=== PATIENT | female | born 1955 | race Caucasian/White ===

== ENCOUNTER → 2017-09-13 13:40 | Outpatient (CLI) | payer BC, SELFPAY ==
--- NOTE | 2017-09-13 13:42 | BI_ITS ---
MAMMOGRAPHY - BILATERAL SCREENING REASON FOR EXAM: Female, 62 years old. Routine annual screening examination. PERTINENT HISTORY: Non-contributory. TECHNIQUE: Digital bilateral breast rupal (3D mammographic acquisition) in the CC and MLO projections. 2-D mediolateral oblique (MLO) and craniocaudad (CC) views of both breasts were obtained. CAD: Full Field Digital Mammography with Computer Added Detection was performed. COMPARISON: Comparison is made with prior study dated August 12, 2016 and August 12, 2015. FINDINGS: Breast Composition: The breasts are heterogeneously dense, which may obscure small masses. There are no dominant masses or suspicious calcifications. Benign appearing bilateral axillary lymph nodes. No other significant abnormalities are identified. There has been no significant change since the prior study. BI/SCREENING MAMM (CAD), BILAT IMPRESSION: Stable bilateral screening mammogram. Yearly follow-up mammogram recommended. (A) ASSESSMENT CATEGORY: BIRADS Category 2: Benign. A letter regarding these results will be sent to the patient by the facility within 30 days. Approximately 10% of breast cancers are not detected by mammography. A normal mammogram should not delay biopsy of a clinically suspicious abnormality. [id number] Electronically Signed: Stewart Estrella MD at 14:51 EDT Tel [phone], Service support ,
== END ==
PROVIDERS: Family Provider Internal Medicine; PCP Internal Medicine; Visit Provider Obstetrics & Gynecology
DX: Z12.31 Encounter for screening mammogram for malignant neoplasm of breast (principal)
CPT/HCPCS: 77063; 77067

== ENCOUNTER → 2017-09-24 09:04 | Outpatient (CLI) | payer BC, SELFPAY ==
--- NOTE | 2017-09-24 09:06 | RAD_ITS ---
STUDY: X-RAY - LEFT HAND REASON FOR EXAM: Female, 62 years old. Fall yesterday. Pain and swelling. TECHNIQUE: 3 view(s) of the hand. COMPARISON: None. FINDINGS: There is transverse fracture lucency involving the base of the fifth metacarpal. There is associated cortical step-off. There is mild associated soft tissue swelling. There is no angulation. RAD/Hand Min 3 Views IMPRESSION: Acute fracture involving the base of the fifth metacarpal. Osseous anatomic alignment. Mild separation of the fracture fragments. Electronically Signed: Ray Sexton MD at 9:36 EDT , Service support ,
== END ==
PROVIDERS: Family Provider Internal Medicine; PCP Internal Medicine; Visit Provider Physician Assistant Surgical
DX: S60.222A Contusion of left hand, initial encounter (principal); X58.XXXA Exposure to other specified factors, initial encounter; Y93.9 Activity, unspecified; Y92.9 Unspecified place or not applicable; Y99.9 Unspecified external cause status
CPT/HCPCS: 73130

== ENCOUNTER → 2017-12-02 09:18 | Outpatient (CLI) | payer BC, SELFPAY ==
[2017-12-02 10:11] LABS: Absolute Lymphocyte Count 1.62 X10^3/ul (0.83-4.51); Absolute Neutrophil Count 1.7 X10^3/uL (2.0-7.7); Basophil# 0.01 X10^3/uL; Basophil% 0.3 % (0-1); Eosinophil# 0.08 X10^3/uL; Eosinophils% 2.1 % (0-5); Hematocrit 38.6 % (37-47); Hemoglobin 12.6 g/dl (12.0-15.0); Lymphocyte # 1.62 X10^3/ul (4.0); Lymphocyte % 42.7 % (19-41); Mean Corp Hgb Conc 32.6 g/gl (32-36); Mean Corpuscular Hgb 29.2 pg (27.0-32.0); Mean Corpuscular Volume 89.6 fL (81-99); Mean Platelet Vol. 9.5 fl (6.2-12.0); Monocyte# 0.38 X10^3/uL; Neutrophil % 44.9 % (47-70); Platelet Count 318 K/mm3 (150-450); Red Blood Count 4.31 M/mm3 (4.2-5.4); White Blood Count 3.8 K/mm3 (4.4-11.0)
[2017-12-02 10:31] LABS: POSITIVE COUNT NO; POSITIVE DIFFERENTIAL NO; POSITIVE MORPHOLOGY NO
[2017-12-02 10:49] LABS: ALB/GLOB Ratio 0.9 RATIO (0.9-2.4); AST(SGOT) 20 U/L (15-37); Alanine Aminotransfer ALT/SGPT 22 U/L (13-56); Albumin, Serum 3.5 g/dL (3.2-5.0); Alkaline Phosphatase 71 U/L (45-117); Anion Gap 3 (5-15); BUN 15 mg/dL (7-18); BUN/Creat Ratio 18.1 RATIO (10-20); Calcium,Total 8.5 mg/dL (8.5-10.1); Chloride 107 mmol/L (98-107); Cholesterol 198 mg/dL (200); Creatinine, Serum 0.83 mg/dL (0.55-1.02); EST Glomerular Filtration Rate 75 mL/min (>60); Est Glom Filt Rate - Afr Amer 90 mL/min (>60); Globulin 3.8 g/dL (2.2-4.2); Glucose 81 mg/dL (74-106); High Density Lipoprotein 70 mg/dL; Magnesium 2.1 mg/dL (1.6-2.6); Potassium 3.8 mmol/L (3.5-5.1); Protein, Total 7.3 g/dL (6.4-8.2); Sodium Level 140 mmol/L (136-145); T4 Free Direct 1.31 ng/dL (0.76-1.46); Thyroid Stim Hormone (TSH) 1.61 uIU/mL (0.358-3.74); Triglycerides 35 mg/dL; Very Low Density Lipoprotein 7 mg/dL (5-40)
[2017-12-02 13:19] LABS: Vitamin D,25 Hydroxy 64.4 ng/mL (29.95-100.01)
== END ==
PROVIDERS: Family Provider Internal Medicine; PCP Internal Medicine; Visit Provider Internal Medicine
DX: Z00.00 Encounter for general adult medical examination without abnormal findings (principal); E03.9 Hypothyroidism, unspecified; E55.9 Vitamin D deficiency, unspecified; Z13.220 Encounter for screening for lipoid disorders; Z85.79 Personal history of other malignant neoplasms of lymphoid, hematopoietic and related tissues; Z79.899 Other long term (current) drug therapy
CPT/HCPCS: 36415; 80053; 80061; 82306; 83735; 84439; 84443; 85025

== ENCOUNTER → 2018-09-13 12:28 | Outpatient (CLI) | payer BC, SELFPAY ==
--- NOTE | 2018-09-13 12:30 | BI_ITS ---
MAMMOGRAPHY - BILATERAL SCREENING REASON FOR EXAM: Female, 63 years old. Routine annual screening examination. PERTINENT HISTORY: Non-contributory. TECHNIQUE: Digital bilateral breast rupal (3D mammographic acquisition) in the CC and MLO projections. 2-D mediolateral oblique (MLO) and craniocaudad (CC) views of both breasts were obtained. CAD: Full Field Digital Mammography with Computer Added Detection was performed. COMPARISON: Comparison is made with prior study dated August 12, 2016 and September 13, 2017. FINDINGS: Breast Composition: The breasts are heterogeneously dense, which may obscure small masses. There are no dominant masses or suspicious calcifications. No other significant abnormalities are identified. There has been no significant change since the prior study. BI/SCREENING MAMM (CAD), BILAT IMPRESSION: Stable bilateral screening mammogram. Yearly follow-up mammogram recommended. (A) ASSESSMENT CATEGORY: BIRADS Category 1: Negative. A letter regarding these results will be sent to the patient by the facility within 30 days. Approximately 10% of breast cancers are not detected by mammography. A normal mammogram should not delay biopsy of a clinically suspicious abnormality. [id number] Electronically Signed: Stewart Estrella, at 13:30 EDT , Service support ,
== END ==
PROVIDERS: Family Provider Internal Medicine; PCP Internal Medicine; Referring Provider Obstetrics & Gynecology; Visit Provider Obstetrics & Gynecology
DX: Z12.31 Encounter for screening mammogram for malignant neoplasm of breast (principal)
CPT/HCPCS: 77063; 77067

== ENCOUNTER → 2019-08-04 08:24 | Outpatient (CLI) | payer BC, SELFPAY ==
--- NOTE | 2019-08-04 08:30 | BI_ITS ---
MAMMOGRAPHY - BILATERAL SCREENING REASON FOR EXAM: Female, 64 years old. Routine annual screening examination. PERTINENT HISTORY: Non-contributory. TECHNIQUE: Digital bilateral breast ezequiel (3D mammographic acquisition) in the CC and MLO projections. 2-D mediolateral oblique (MLO) and craniocaudad (CC) views of both breasts were obtained. CAD: Full Field Digital Mammography with Computer Added Detection was performed. COMPARISON: Comparison is made with prior study dated September 13, 2018 and September 13, 2017. FINDINGS: Breast Composition: The breasts are heterogeneously dense, which may obscure small masses. There are no dominant masses or suspicious calcifications. Stable benign-appearing bilateral axillary lymph nodes. No other significant abnormalities are identified. There has been no significant change since the prior study. BI/SCREEN MAMM (CAD) W/EZEQUIEL BILAT IMPRESSION: Stable bilateral screening mammogram. Yearly follow-up mammogram recommended. (A) ASSESSMENT CATEGORY: BIRADS Category 1: Negative. A letter regarding these results will be sent to the patient by the facility within 30 days. Approximately 10% of breast cancers are not detected by mammography. A normal mammogram should not delay biopsy of a clinically suspicious abnormality. [id number] Electronically Signed: Stewart Estrella, at 10:34 EST , Service support ,
== END ==
PROVIDERS: PCP Internal Medicine; Referring Provider Obstetrics & Gynecology; Visit Provider Obstetrics & Gynecology
DX: Z12.31 Encounter for screening mammogram for malignant neoplasm of breast (principal)
CPT/HCPCS: 77063; 77067

== ENCOUNTER 2020-03-15 06:37 | Day surgery (SDC) | payer BC, SELFPAY ==
[2020-03-15] VITALS (11 sets, daily range): BP systolic 98–132; BP diastolic 54–98; PULSE 62–75; RESP 14–16; TEMP 36–36.4; O2SAT 97–100; BMI 22.5
--- NOTE | 2020-03-15 06:56 | PCM.HP.STD ---
Problem List (1) Personal history of colonic polyps Status: Acute History of Present Illness Date of Admission: 03/15/20 The patient is a 65 year old F whose last colonoscopy was 5 years ago. She did have a polyp at that time. No personal or family history of colon cancer. She otherwise is enjoying good health. No cough shortness of breath or fever. No abdominal pain. No bright red blood per rectum or melena. No weight loss. No history of DVT. Past Medical History Past Medical History (Chronic Problems): Chronic Problems (Last Updated 09/24/17 @ 09:06 by Jazmin Cunningham) Hypothyroidism (Chronic) Medical History: Medical History (Last Updated 09/24/17 @ 09:06 by Jazmin Cunningham) Cancer C80.1 Thyroid disease E07.9 Allergies No Known Allergies Allergy (Verified 03/15/20 06:46) Home Medications: Ambulatory Orders Medication Instructions Recorded Cholecalciferol (VIT D3) [Vitamin 2,000 unit PO DAILY 10/06/15 D3] Levothyroxine [Synthroid] 75 mcg PO DAILY 10/06/15 Multivitamins,Therapeutic 1 tab PO DAILY 10/06/15 [Multivitamin] Docosahexanoic Acid [Dha Algal-900] 300 mg PO DAILY 03/05/20 Esomeprazole Mag Trihydrate 40 mg PO DAILY 03/05/20 [Nexium] Glucosamine/D3/Boswellia Isis 1 ea PO DAILY 03/05/20 [Osteo Bi-Flex Tablet] Senna [Senokot] 2 tab PO DAILY 03/05/20 Smoking Status: Never smoker Tobacco Use: Non-smoker Review of Systems Constitutional: Denies: Fever Cardiovascular: Denies: Chest Pain Respiratory: Denies: Cough Gastrointestinal: Denies: Abdominal Pain, Melena Endocrine: Denies: Change in Body Habitus VTE Information - Inpt Only VTE Present on Admission: No - Physical Exam Vitals/I&O's: Vital Signs Temp Pulse Resp BP Pulse Ox 97.5 F L 65 16 131/62 H 100 03/15/20 06:48 03/15/20 06:48 03/15/20 06:48 03/15/20 06:48 03/15/20 06:48 Oxygen Delivery Method Room Air Weight: 119 lb 4.321 oz Body Mass Index (BMI) 22.5 General: Alert, Oriented x3, Cooperative, No apparent distress HEENT: Atraumatic Oral: Moist Mucosa Lungs: Clear to auscultation, Normal air movement Cardiovascular: Regular rate, Regular Rhythm Abdomen: Bowel Sounds Present, Non Tender Extremities: No Calf Tenderness Psych/Mental Status: Normal Affect Assessment/Plan All Active Problems (Last Updated 09/24/17 @ 09:06 by Jazmin Cunningham) Personal history of colonic polyps (Acute) Sinusitis, acute (Acute) Closed fracture of fifth metacarpal bone of left hand (Acute) Contusion of left hand, initial encounter (Acute) Ectopic atrial rhythm (Acute) Screening for intestinal cancer. Past history of colon polyp. I recommended the patient a colonoscopy with possible biopsy or polypectomy is indicated. She is aware of the technique, benefit, risk, alternatives. She presents via open access today. We will proceed as noted. Eber Spain M.D., F.A.C.S. Procedure Criteria Procedure Type: Elective COVID Risk Discussion: The surgeon/proceduralist and patient have discussed in detail the risk of exposure to and/or potential harm posed by the COVID-19 virus with having a surgery/procedure at this time versus the risk of delaying the surgery/procedure. It is not possible to know either the risk of delaying the surgery or procedure or chance of getting an infection with perfect accuracy, but a joint decision was made between the patient and the surgeon/proceduralist to proceed at this time with the scheduled surgery/procedure as indicated on the consent form.
[2020-03-15] MEDS: Lactated Ringers 1,000 ML 100 ML IV (06:58)
--- NOTE | 2020-03-15 07:26 | OP.COLON_ITS ---
Patient Name: Мария Helton Procedure Date: 03/15/2020 6:49 AM Date of : 1955 Age: 65 Procedure: Colonoscopy Indications: High risk colon cancer surveillance: Personal history of colonic polyps Providers: Eber Spain MD Referring MD: Josefa Martinez Medicines: Midazolam 4.5 mg IV, Meperidine 100 mg IV Patient Profile: Last Colonoscopy: 5 years ago. Complications: No immediate complications. Procedure: Pre-Anesthesia Assessment: - Prior to the procedure, a History and Physical was performed, and patient medications and allergies were reviewed. The patient's tolerance of previous anesthesia was also reviewed. The risks and benefits of the procedure and the sedation options and risks were discussed with the patient. All questions were answered, and informed consent was obtained. Prior Anticoagulants: The patient has taken no previous anticoagulant or antiplatelet agents. ASA Grade Assessment: II - A patient with mild systemic disease. After reviewing the risks and benefits, the patient was deemed in satisfactory condition to undergo the procedure. After I obtained informed consent, the scope was passed under direct vision. Throughout the procedure, the patient's blood pressure, pulse, and oxygen saturations were monitored continuously. The Colonoscope was introduced through the anus and advanced to the cecum, identified by appendiceal orifice and ileocecal valve. The colonoscopy was performed without difficulty. The patient tolerated the procedure well. The quality of the bowel preparation was good. The ileocecal valve and the appendiceal orifice were photographed. Moderate Sedation: Moderate (conscious) sedation was personally administered by the endoscopist. The following parameters were monitored: oxygen saturation, heart rate, blood pressure, and response to care. Total physician intraservice time was 15 minutes. Scope In: 7:08:05 AM Scope Withdrawal Time 0 hours 6 minutes 55 seconds Scope Out: 7:20:52 AM Total Procedure Duration Time 0 hours 12 minutes 47 seconds Findings: The perianal and digital rectal examinations were normal. The colon (entire examined portion) appeared normal. Minimal hemorrhoids Impression: - The entire examined colon is normal. - No specimens collected. Recommendation: - Discharge patient to home. - Resume previous diet. - Continue present medications. - Repeat colonoscopy in 10 years for screening purposes. Procedure Code(s): --- Professional --- 49032, Colonoscopy, flexible; diagnostic, including collection of specimen(s) by brushing or washing, when performed (separate procedure) 61443, 59, Moderate sedation services provided by the same physician or other qualified health summer child caregiver performing the diagnostic or therapeutic service that the sedation supports, requiring the presence of an independent trained observer to assist in the monitoring of the patient's level of consciousness and physiological status; initial 15 minutes of intraservice time, patient age 5 years or older Diagnosis Code(s): --- Professional --- Z86.010, Personal history of colonic polyps CPT copyright 2017 [employer]. All rights reserved. The codes documented in this report are preliminary and upon geophysicist review may be revised to meet current compliance requirements. Eber Spain MD 03/15/2020 7:25:46 AM This report has been signed electronically. Number of Addenda: 0 Note Initiated On: 03/15/2020 6:49 AM
--- NOTE | 2020-03-15 07:26 | OP.CCLET_ITS ---
03/15/2020 Josefa Martinez [address] [place] [address] Re : Colonoscopy procedure for Мария Helton Dear Dr. Martinez This procedure was performed on Sunday, March 15, 2020. My impressions and recommendations are as follows: Impressions : - The entire examined colon is normal. - No specimens collected. Recommendations : - Discharge patient to home. - Resume previous diet. - Continue present medications. - Repeat colonoscopy in 10 years for screening purposes. My findings are described in the full procedure note, which is enclosed. If I can be of further assistance, please feel free to contact me at Doctor phone number(s): Work: . Sincerely, Eber Spain MD 03/15/2020 7:25:46 AM This report has been signed electronically.
== END 2020-03-15 08:47 | disposition home or self-care (01) ==
LOC: EN 06:37 → AC 06:37
PROVIDERS: PCP Internal Medicine; Referring Provider Internal Medicine; Visit Provider Surgery
PROC: 0DJD8ZZ Inspection of Lower Intestinal Tract, Via Natural or Artificial Opening Endoscopic (ICD-10-PCS; CPT 45378; principal; 2020-03-15 07:25)
DX: Z12.11 Encounter for screening for malignant neoplasm of colon (principal); Z11.59 Encounter for screening for other viral diseases; K64.9 Unspecified hemorrhoids; E03.9 Hypothyroidism, unspecified; Z86.010 Personal history of colon polyps; Z79.899 Other long term (current) drug therapy
CPT/HCPCS: 45378; 87635; 99152; 99153; C9803; J7120; U0003

== ENCOUNTER → 2020-08-06 15:04 | Outpatient (CLI) | payer BC, SELFPAY ==
[2020-03-15 06:48] VITALS: BMI 22.5
--- NOTE | 2020-08-06 15:05 | BI_ITS ---
MAMMOGRAPHY - BILATERAL SCREENING REASON FOR EXAM: Female, 65 years old. Routine annual screening examination. PERTINENT HISTORY: Non-contributory. TECHNIQUE: Digital bilateral breast ezequiel (3D mammographic acquisition) in the CC and MLO projections. 2-D mediolateral oblique (MLO) and craniocaudad (CC) views of both breasts were obtained. CAD: Full Field Digital Mammography with Computer Added Detection was performed. COMPARISON: Comparison is made with prior study dated 08/04/2019 and 09/13/2018. FINDINGS: Breast Composition: The breasts are heterogeneously dense, which may obscure small masses. There is a 1.2 cm x 1 cm well-defined nodule in the upper deep central portion of the right breast. Correlation with ultrasound is recommended. Stable benign-appearing left axillary lymph nodes. No other significant abnormalities are identified. BI/SCRN MAMM (CAD)W/EZEQUIEL BILAT IMPRESSION: 1.2 cm x 1 cm well-defined nodule in the upper deep central portion of the right breast. Correlation with ultrasound is recommended. ASSESSMENT CATEGORY: BIRADS Category 0: Incomplete. Need additional imaging evaluation. A letter regarding these results will be sent to the patient by the facility within 30 days. Approximately 10% of breast cancers are not detected by mammography. A normal mammogram should not delay biopsy of a clinically suspicious abnormality. [id number] Electronically Signed: Stewart Estrella MD at 10:55 EDT , Service support ,
== END ==
PROVIDERS: PCP Internal Medicine; Referring Provider Obstetrics & Gynecology; Visit Provider Obstetrics & Gynecology
DX: Z12.31 Encounter for screening mammogram for malignant neoplasm of breast (principal)
CPT/HCPCS: 77063; 77067

== ENCOUNTER → 2020-08-13 15:02 | Outpatient (CLI) | payer BC, SELFPAY ==
[2020-03-15 06:48] VITALS: BMI 22.5
--- NOTE | 2020-08-13 15:07 | US_ITS ---
STUDY: ULTRASOUND BREAST - RIGHT REASON FOR EXAM: Female, 65 years old. Abnormal screening mammogram. TECHNIQUE: Axial and longitudinal images of the RIGHT breast were performed with a high resolution ultrasound transducer. # OF IMAGES: 13 COMPARISON: Comparison is made with prior mammogram dated 08/06/2020. FINDINGS: RIGHT Breast: The mammographic abnormality corresponds to a 1.6 cm x 1.2 cm x 0.5 cm cyst at the 12 o''clock position of the breast at 2 cm from nipple. US/Breast Limited Unilateral IMPRESSION: The mammographic abnormality corresponds to a 1.6 cm x 1.2 cm x 0.5 cm cyst at the 12 o''clock position of the breast at 2 cm from the nipple. ASSESSMENT CATEGORY: BIRADS Category 2: Benign. A letter regarding these results will be sent to the patient by the facility within 30 days. Electronically Signed: Stewart Estrella MD at 10:02 EDT , Service support ,
== END ==
PROVIDERS: PCP Internal Medicine; Referring Provider Obstetrics & Gynecology; Visit Provider Obstetrics & Gynecology
DX: N60.01 Solitary cyst of right breast (principal); R92.8 Other abnormal and inconclusive findings on diagnostic imaging of breast
CPT/HCPCS: 76642

== ENCOUNTER 2021-08-13 14:22 | Outpatient (CLI) | payer BC, SELFPAY ==
--- NOTE | 2021-08-13 14:22 | BI_ITS ---
MAMMOGRAPHY - BILATERAL SCREENING 3-D TOMOSYNTHESIS REASON FOR EXAM: Female, 66 years old. SCREENING PERTINENT HISTORY: No significant family history. TECHNIQUE: 2-D mammograms and 3-D Tomosynthesis of the breast (s) were performed. CAD was performed. COMPARISON: 08/06/2020 FINDINGS: The breast composition is Extermely dense tissue. Scattered benign calcifications are seen. No dominant mass. No suspicious calcifications in the right breast. Grouped punctate calcifications in the upper outer quadrant left breast posterior depth and magnification views recommended for further evaluation.. No architectural distortion is identified. There is no skin thickening or retraction. There has been no significant change since the prior study. BI/SCRN MAMM (CAD)W/EZEQUIEL BILAT IMPRESSION: Grouped punctate calcifications in the upper outer quadrant left breast at posterior depth and magnification views are recommended for further evaluation. ASSESSMENT CATEGORY: BIRADS Category 0: Incomplete. Need additional imaging evaluation as above. A letter regarding these results will be sent to the patient by the facility within 30 days. FOLLOW UP RECOMMENDATION: Additional imaging recommended as above. (E) Approximately 10% of breast cancers are not detected by mammography. A normal mammogram should not delay biopsy of a clinically suspicious abnormality. Electronically Signed: Loki Hardy MD at 16:13 EDT ,
== END 2021-08-13 23:59 | disposition home or self-care (01) ==
LOC: OPBI 14:22
PROVIDERS: PCP Internal Medicine; Referring Provider Obstetrics & Gynecology; Visit Provider Obstetrics & Gynecology
DX: Z12.31 Encounter for screening mammogram for malignant neoplasm of breast (principal)
CPT/HCPCS: 77063; 77067

== ENCOUNTER 2021-08-25 14:12 | Outpatient (CLI) | payer BC, SELFPAY ==
--- NOTE | 2021-08-25 14:15 | BI_ITS ---
MAMMOGRAPHY - UNILATERAL DIAGNOSTIC: LEFT BREAST REASON FOR EXAM: Female, 66 years old. Abnormal screening mammogram. PERTINENT HISTORY: Non-contributory. TECHNIQUE: Compression magnification views of the left breast were obtained. CAD: Full Field Digital Mammography with Computer Added Detection was performed. COMPARISON: Comparison is made with prior mammogram dated 08/13/2021. FINDINGS: Breast Composition: The breasts are extremely dense, which lowers the sensitivity of mammography. Persistent cluster of microcalcification in the upper lateral aspect of the left breast. Biopsy is recommended. No other significant abnormalities are identified. BI/DIAG MAMM W/CAD, UNILAT IMPRESSION: Persistent cluster microcalcification in the upper deep lateral aspect of the left breast. Biopsy recommended. ASSESSMENT CATEGORY: BIRADS Category 4: Suspicious - Biopsy Should Be Considered. A letter regarding these results will be sent to the patient by the facility within 30 days. Approximately 10% of breast cancers are not detected by mammography. A normal mammogram should not delay biopsy of a clinically suspicious abnormality. Electronically Signed: Stewart Estrella MD at 14:56 EDT ,
--- NOTE | 2021-08-28 11:25 | NURSING ---
GRACIA Nova received a phone call from pt at approximately 0950 on 08/28/21. Pt was returning Rad RN phone call received the previous day. Pt had not been informed of her results of her mammography by Dr. Lawrence's office prior to talking with GRACIA Nova. Pt was informed that she had a Bi-RADs 4 result which suggested she see a surgeon for a consult to see if she would need to have a biopsy of the area. Pt preferred Dr. Spain. GRACIA Nova then told patient she should expect a phone call from his office today to set up a consultation. Pt then requested to talk to a spray technician as she had some questions. Pt was extremely upset that Dr. Lawrence's office had not called to inform her of her results. Pt stated I had a regular mammogram, then a diagnostic mammogram, they wanted to do an ultrasound, but then cancelled it, so I was under the assumption that everything was good! I'm sorry, I'm just very taken aback that this is how I'm finding out about this. Now, shouldn't Dr. Lawrence be telling me all of this? GRACIA Nova stated Yes, I am so sorry they didn't call and talk with you first, that is our protocol is to have the office contact you first so that you are expecting our call and I am so sorry that didn't happen. Your feelings are completely valid. Pt then states Can you please make sure Dr. Lawrence's office knows how upset I am, I just don't think this is right. GRACIA Nova reassured pt Dr. Lawrence's office would be informed. Pt then requested to speak with a spray technician regarding not having an ultrasound post mammogram. GRACIA Nova transferred pt to mammography and told pt she should expect a call from Dr. Spain's office. GRACIA Nova then called Dr. Spain's scheduling and they were going to take care of setting the patient up for a consultation.
--- NOTE | 2021-08-28 11:39 | NURSING ---
RohiniRN called [facility] and spoke with a nurse, Fátima for Dr. Lawrence. Informed Fátima that pt was very unhappy that she did not receive her notification of having a BI-RADs [address] Lawrence's office and instead found out from a phone call trying to schedule a consultation with a surgeon to discuss a possible biopsy. Fátima was understanding and stated that they will work to not have this situation happen again in the future.
== END 2021-08-25 23:59 | disposition home or self-care (01) ==
PROVIDERS: PCP Internal Medicine; Visit Provider Obstetrics & Gynecology
DX: R92.2 Inconclusive mammogram (principal); R92.1 Mammographic calcification found on diagnostic imaging of breast
CPT/HCPCS: 77065

== ENCOUNTER 2021-09-08 10:56 | Outpatient (CLI) | payer BC, SELFPAY ==
--- NOTE | 2021-09-08 | IMM_PTH ---
PATIENT: RAMÓN MCKINNON LOC: [facility] U#:[id number] AGE/SX: 66/F ROOM: RE09/08/[address]: Dr. Eber Spain MD : 1955 BED: DIS: 09/08/2021 SPEC #: [id number] RECD: 09/09/21 14:16 STATUS: SAMUEL REQ #: [id number] ROZINA: 09/08/21 00:[address]: Eber Spain DEPT: IMMUNOHISTOCHEMISTRY RECD BY: Laura Erickson ENTERED: 09/09/21 14:18 SP TYPE: IMMUNO OTHR DR: Dr. Josefa Martinez MD Tissues: Left breast, NOS Procedures: CALPONIN-1 (add) CK5-6 (add) CK8 (add) E-CAD (add) HER2 TAM (add) KI-67 (add) P53 (add) PA (add) P40 (add) ER (initial) PHYSICIAN & [address] [address] SPECIMEN INFORMATION: Tissue Source: Left breast, upper outer quadrant Clinical Info: Microcalcifications UOQ, left breast Specimen Number: [id number] CPT code: 87370, 90177 x6, 01941 x3 METHODOLOGY: Deparaffinized sections of prefer/formalin-fixed tissue or PAP/DQ stained slides are incubated with monoclonal/polyclonal antibodies/oligonucleotide probes. Localization is made via biotin free immunoperoxidase method. Appropriate controls are performed and reacted as expected. Results on target cell population are indicated in the following table: RESULTS: ANTIBODY / CLONE RESULT P53 (DO-7) positive, 2% Ki-67 (30-9) positive, 5% CK8 (37cvhqO79) positive CK5-6 (D5 & 1684) positive Calponin-1 (CO151P) positive P40 (BC28) positive E-Cad (ECH-6) positive MORPHOMETRIC ANALYSIS ER (clone 6F11) positive, >95%, strong intensity PA (clone 16/1E2) positive, 40%, moderate intensity Her-2Neu (clone CB11) equivocal, 1-2+ The prognostic test for HER2 is performed on formalin-fixed paraffin embedded tissue. A 3+ (positive) staining pattern is defined as intense, homogeneous, complete, circumferential membranous staining in >10% of contiguous tumor cells. A similar weak (2+) staining pattern is interpreted as equivocal. KIANA follow-up testing is recommended for all equivocal cases. Positivity/negativity for ER/PA is reported if > or < 1% of the tumor cells are immuno- reactive, respectively. The ASCO/CAP criteria is used for scoring. Reference: Journal of Clinical Oncology, 2013; 31:8132-4301 & 2010; 16:1411-5187. Duration of fixation: 8.5 Hrs; Sample Adequate: Yes. These assays have not been validated on decalcified tissues. Results should be interpreted with caution given the likelihood of false negativity on decalcified specimens. These tests were developed and their performance characteristics determined by [facility]. They may not have been cleared or approved by the U.S. Food and Drug Administration. The FDA has determined that such clearance or approval is not necessary. The above immunohistochemical/dualISH markers are ordered and reviewed by the Pathologist. 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 AM:shannan 09/10/2021
--- NOTE | 2021-09-08 10:28 | PCM.HP.BLA ---
History and Physical Date of Admission: 09/08/21 Intake Visit Reasons: BIRAD 4 Chief Complaint: abn mammo Tour Manager Required: No Is patient in pain?: No Allergies No Known Allergies Allergy (Verified 09/02/21 13:22) Medications cholecalciferol (vitamin D3) 2,000 unit PO DAILY 10/06/15 [History Confirmed 09/02/21] multivitamin with folic acid 1 tab PO DAILY 10/06/15 [History Confirmed 09/02/21] docosahexaenoic acid 300 mg PO DAILY 03/05/20 [History Confirmed 09/02/21] esomeprazole magnesium 40 mg PO DAILY 03/05/20 [History Confirmed 09/02/21] eoklrajjjde-V8-Xjzkiblun serr 1 ea PO DAILY 03/05/20 [History Confirmed 09/02/21] sennosides 2 tab PO DAILY 03/05/20 [History Confirmed 09/02/21] levothyroxine 75 mcg tablet 75 mcg PO DAILY tab 09/02/21 [History Confirmed 09/02/21] Is last menstrual period known: No Post menopausal: Yes Patient : No PFSH Medical History (Updated 09/02/21 @ 13:20 by Sally Ly) Breast calcifications GERD (gastroesophageal reflux disease) History of lymphoma Thyroid disease Surgical History (Updated 09/02/21 @ 13:20 by Sally Ly) History of colonoscopy (~02/2020) History of hysterectomy History of lymph node biopsy Family History (Updated 09/02/21 @ 13:21 by Sally Ly) Mother Cancer oral w/ mets to lung Osteoporosis Father Parkinsons disease Social History (Updated 09/30/17 @ 16:[address] Jennifer Yip, DO) Smoking Status: Never smoker HPI HPI HPI: RAMÓN MCKINNON, is a 66 F who presents to the office today for surgical consultation regarding abnormal mammography. The patient is referred by Dr. Josefa Martinez and Dr. Su Lawrence and a written copy of my surgical consult recommendations will return to her. On August 13, 2021 at the [facility] screening bilateral mammography was obtained. There was felt to be scattered benign calcifications seen throughout the right breast. There is felt to be a grouped punctate calcification in the upper outer quadrant of the left breast for which magnification views were recommended. However there was felt to be no change from the previous study. BI-RADS Category 0. Subsequently on August 25, 2021 diagnostic left mammograms were obtained. The breasts was noted to be very dense. There is felt to be a persistent cluster of microcalcification in the upper outer quadrant of the left breast. BI-RADS Category 4. Biopsy recommended. 66-year-old female. G4, . Menarche age 14. First child born when she was 30. She did breast-feed. No history of previous breast biopsy. She does take vaginal estrogen cream. She also takes a natural product that has a fish oil type supplement. Family history negative for breast cancer. She has not had Covid-19. She has been Covid-19 vaccinated. 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 She was treated by Dr. Bull Villalta with chemo radiation treatment and has been disease-free since. ROS General General: No weight change, appetite, fatigue, colon cancer, breast cancer or weakness HEENT HEENT: No difficulty swallowing, eye injury, eye surgery, swollen glands or hoarseness Endo Endocrine: Yes thyroid disease; No diabetes mellitus, thyroid cancer, Hair loss, heat intolerance or cold intolerance Breast Breast: Yes abnormal mammogram; No left breast lump, right breast lump, nipple discharge, breast pain, abnormal US or breast enlargement Cardio Cardiovascular: No murmur, pacemaker, heart disease, atrial fibrillation, high blood pressure, heart attack, heart stent, palpitations, shortness of breat with exertion or chest pain Psych Psychiatric: No depression, anxiety or hearing voices Resp Respiratory: No shortness of breath, No sleep apnea, No cough, No COPD, No asthma, No emphysema and No wheezing Gastro Gastrointestinal: No abdominal pain, No nausea or vomiting, No diarrhea, Yes constipation, No blood in stool, Yes acid reflux, No hemorrhoids, No ulcers, No gallbladder problem and No black,tarry stools [place] Hematologic: No blood thinners, No blood disorders, No bleeding, No anemia and No blood clots Neuro Neurologic: No weakness Exam Const General: cooperative, healthy appearing, comfortable, no acute distress and well developed [facility] Head: normal to inspection Eyes General: appearance normal, both eyes and all related structures Neck Neck: normal visual inspection Neck mass: No Carotids: normal carotid upstroke and no bruits Chest Chest palpation & inspection: normal inspection of the chest Other: Right breast: No focal mass. No nipple discharge. No axillary or clavicular neuropathy Left breast: No focal mass. No nipple discharge. No axillary or clavicular adenopathy, benign-appearing uniform round pigmented skin lesion left periareolar Resp Effort & Inspection: normal respiratory effort Auscultation: clear to auscultation bilaterally Cardio Rate: regular rate Rhythm: regular rhythm GI Inspection: normal to inspection Palpation: soft and no hepatosplenomegaly Musc Cervical Spine: normal cervical lordosis Skin General: no rashes or lesions noted Neuro General: patient alert and patient awake Extrem General: no calf tenderness Psych Appearance: grossly normal Judgment: judgment good Assessment and Plan Assessment and Plan (1) Breast calcifications: Status: Acute Plan - Dr. Eber Spain MD: 66-year-old female with clustered microcalcifications upper outer quadrant left breast. I recommend to her stereotactic needle core biopsy and have discussed the technique, benefit, risk, alternatives. I have asked her to hold her vaginal estrogen and natural fish oil replacement product. She has had an opportunity to ask and have questions answered. 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 We will schedule and expedite her care. I appreciate the opportunity of assisting with her surgical management. Copy: Dr. Josefa Spain M.D., F.A.C.S I have re-examined the patient. There are no clinical changes since date of exam.
--- NOTE | 2021-09-08 11:15 | BRBX_PTH ---
PATIENT: RAMÓN MCKINNON LOC: [facility] U#:[id number] AGE/SX: 66/F ROOM: RE09/08/[address]: Dr. Eber Spain MD : 1955 BED: DIS: 09/08/2021 SPEC #: [id number] RECD: 09/08/21 11:45 STATUS: SAMUEL REDanika #: [id number] ROZINA: 09/08/21 11:[address]: Eber Spain DEPT: SURGICAL PATHOLOGY RECD BY: Alessandra Flores ENTERED: 09/08/21 11:50 SP TYPE: BREAST BX OTHR DR: Dr. 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 present Nuclear grade ? 2-3/3 Maximal length ? 5.5 mm See comment. AM:shannan 09/09/2021 COMMENT Immunohistochemistry ([id number]) supports the above diagnosis. Case has been reviewed in consultation with Dr. Peraza who concurs with the above diagnosis. IDC:SJ MICROSCOPIC DESCRIPTION Slides are reviewed. GROSS DESCRIPTION Received is one container labeled with the patient's name and not further designated. The specimen consists of multiple irregular and elongated fragments of pink-yellow soft tissue that in aggregate measure 2.5 x 2 x 0.2 cm. The specimen is totally submitted in one cassette. / AM:shannan 09/08/2021 TC:0 CPT: 87759
--- NOTE | 2021-09-08 11:52 | PCM.OPRPT ---
Problems Associated Problem List Diagnoses (1) Breast calcifications: Report of Operation Date of Procedure: 09/08/21 Pre-Operative Diagnosis: Clustered microcalcifications upper outer quadrant left breast Post-Operative Diagnosis: Same Surgery/Procedure Performed:: Stereotactic needle core biopsy upper outer quadrant left breast Description of Surgical Findings:: Timeout informed consent was obtained. 66-year-old female was taken to the mammography suite. She was placed prone on the table and left wrist was placed in a lateral medial view. The microcalcifications in question rapidly identified. Stereotactic images were obtained. Single target site was selected. Breast was prepped with Betadine. 1% lidocaine was used as a local anesthetic. A total of 11 cc was used. A small stab incision was created. 8 gauge mammotome resolved needle was advanced to prefire depth. Prefire films were obtained demonstrating adequate localization. 6 cores were obtained. Specimen cores were obtained demonstrating multiple cores with microcalcifications. A small marking clip was left at 12 o'clock position. She was released from the device and pressure was held for hemostasis. Steri-Strip Telfa OpSite dressing applied. She tolerated the procedure well no apparent complication. Specimen cores. Drains none. Blood loss minimal. The cores had been immediately placed in formalin Eber Spain M.D., F.A.C.S. Surgeon: Eber Spain Type of Anesthesia: Local
== END 2021-09-08 23:59 | disposition home or self-care (01) ==
LOC: BIRAD 10:56
PROVIDERS: PCP Internal Medicine; Visit Provider Surgery
DX: D05.12 Intraductal carcinoma in situ of left breast (principal); E07.9 Disorder of thyroid, unspecified; K21.9 Gastro-esophageal reflux disease without esophagitis; Z79.890 Hormone replacement therapy; Z79.899 Other long term (current) drug therapy; Z85.72 Personal history of non-Hodgkin lymphomas; Z80.8 Family history of malignant neoplasm of other organs or systems
CPT/HCPCS: 19081; 88305; 88341; 88342; J7050

== ENCOUNTER 2021-10-07 09:33 | Day surgery (SDC) | payer BC, SELFPAY ==
[2021-09-30 14:58] LABS: Hemoglobin 11.7 g/dL (12.0-15.0); Mean Corp Hgb Conc 31.6 g/dL (32-36); Mean Corpuscular Hgb 28.8 pg (27.0-32.0); Mean Corpuscular Volume 91.1 fL (81-99); Mean Platelet Vol. 9.5 fl (6.2-12.0); Platelet Count 273 K/mm3 (150-450); RBC Distribution Width CV 13.2 % (11.6-14.6); RBC Distribution Width SD 44.1 fl (35.1-43.9); Red Blood Count 4.06 M/mm3 (4.2-5.4); White Blood Count 5.7 K/mm3 (4.4-11.0)
[2021-09-30 15:28] LABS: Anion Gap 4 (5-15); BUN 16 mg/dL (7-18); BUN/Creat Ratio 22.7 RATIO (10-20); Calcium,Total 8.5 mg/dL (8.5-10.1); Chloride 105 mmol/L (98-107); EST Glomerular Filtration Rate 89 mL/min (>60); Est Glom Filt Rate - Afr Amer 107 mL/min (>60); Glucose 83 mg/dL (74-106); Potassium 4.2 mmol/L (3.5-5.1); Sodium Level 138 mmol/L (136-145)
--- NOTE | 2021-10-01 09:21 | EKG12_ITS ---
Test Reason : PREO Blood Pressure : / mmHG Vent. Rate : 084 BPM Atrial Rate : 084 BPM P-R Int : 148 ms QRS Dur : 068 ms QT Int : 378 ms P-R-T Axes : 070 043 063 degrees QTc Int : 446 ms Normal sinus rhythm Normal ECG Confirmed by KAREN MAX, ZULEMA ([id number]), photographic editor CARLOS EDUARDO VILLALOBOS ([id number]) on 10/01/2021 9:22:43 AM Referred By: Eber Spain Confirmed By:ZULEMA JONES MD
[2021-10-07] VITALS (7 sets, daily range): BP systolic 133–153; BP diastolic 56–78; PULSE 54–77; RESP 14–18; TEMP 36.3–36.8; O2SAT 98–100; BMI 23.3
--- NOTE | 2021-10-07 | BRBX_PTH ---
PATIENT: RAMÓN MCKINNON LOC: [facility] U#:[id number] AGE/SX: 66/F ROOM: RE10/07/[address]: Dr. Eber Spain MD : 1955 BED: DIS: 10/07/2021 SPEC #: [id number] RECD: 10/07/21 13:01 STATUS: SAMUEL [place] #: [id number] ROZINA: 10/07/21 00:[address]: Eber Spain DEPT: SURGICAL PATHOLOGY RECD BY: Laura Erickson ENTERED: 10/07/21 14:59 SP TYPE: BREAST BX OTHR DR: MD Dr. Josefa Caballero MD Tissues: A - Left breast, NOS B - Left breast, NOS C - Left breast, NOS D - Left breast, NOS Procedures: Surgery Specimen Level IV Surgery Specimen Level V HEADER OPERATION: Left breast stereotactic wire localized lumpectomy, fulguration PRE-OP DIAGNOSIS: DCIS TISSUE SUBMITTED: A ? Left breast (short stitch ? superior, wire exits anterior, long stitch ? lateral, B ? Left breast, single stitch new superior margin, C ? Left breast, double stitch new inferior margin, D ? Left breast new medial margin MICROSCOPIC DIAGNOSIS A. Left breast, lumpectomy with needle localization: Ductal carcinoma in situ. See cancer summary in the comment section. B. Left breast, new superior margin: Focal fibrocystic changes. Dense fibrosis and focal intraductal hyperplasia without atypia. Negative for carcinoma. C. New inferior margin: Benign breast tissue, negative for carcinoma. D. New medial margin: Fibrocystic changes, intraductal hyperplasia without atypia. Focal chronic inflammation, fibrosis consistent with previous biopsy site. Negative for carcinoma. SJ:shannan 10/10/2021 COMMENT DUCTAL CARCINOMA IN SITU SUMMARY: Procedure ? excision with needle localization Specimen laterality ? left Tumor site ? upper outer quadrant microcalcifications per clinical information. Size (extent of DCIS): Estimated size (extent) ? 1.7 x 1 cm, largest focus. Number of blocks with DICS ? 5 Number of blocks examined ? 27 (specimens A, B, C & D) Histologic type ? ductal carcinoma in situ Architectural pattern ? cribriform, micropapillary and solid. Nuclear grade ? grade 2 (intermediate) Necrosis ? present, central (expansive ?comedo? necrosis) Margins ? uninvolved by ductal carcinoma in situ. The tumor is 0.3 cm away from the closest anterior margin. Regional lymph nodes ? no lymph node submitted or found. Additional Pathologic Findings ? fibrocystic changes and intraductal hyperplasia with multifocal atypia. - Focal dense fibrosis. - Changes consistent with previous biopsy site. - Minute fibroadenoma x3 (largest measuring 0.5 cm in greatest dimension). Ancillary Studies (previously performed [id number] / [id number]) ER ? positive (>95%, strong intensity) NM ? positive (40%, moderate intensity) Her2 sabra (I[facility]) ? equivocal (1-2+) Microcalcifications - present in DCIS and non-neoplastic tissue. Frequent microcalcifications are noted in the ductal carcinoma in situ. Clinical history - Please make reference to previous specimen ([id number]) left breast, upper outer quadrant, stereotactic core biopsy with diagnosis of ductal carcinoma in situ. Radiologic findings ? microcalcification upper outer quadrant left breast. Pathologic Staging: pTis(DCIS) pNx pMx The above summary is in compliance with [employer] [place] (CAP) Cancer Protocols Checklist and [place] [employer] on Cancer (AJCC), Staging Manual, 8th Ed. Case has been reviewed in consultation with Dr. Kidd who concurs with the above diagnosis. IDC:AM MICROSCOPIC DESCRIPTION Slides are reviewed. GROSS DESCRIPTION A - Received fresh for intraoperative consultation is one container labeled with the patient's name and designated left breast, short stitch - superior, wire exits anterior, long stitch - lateral. The specimen consists of a piece of fibroadipose tissue with needle localization x2 measuring 7 x 6 x 3 cm. The specimen is inked as follows: anterior - yellow, posterior - black, superior - blue, inferior - green, medial - red and lateral - orange. Sections reveal two hemorrhagic areas, most consistent with previous biopsy site. One of the larger hemorrhagic areas is present measuring 1 cm in greatest dimension. The smaller hemorrhage area shows central hemorrhagic area with surrounding indurated areas measuring 1.5 cm in greatest dimension. These areas are 0.2 cm away from the closest posterior and anterior margin respectively. This information is conveyed to the surgeon intraoperatively. Sections of the rest of the specimen reveal corona-yellow adipose cut surfaces mixed with corona-white fibrous area. A piece of skin is also present measuring 3.5 x 0.3 cm. Nuclear Control Room Operator sections are submitted in 14 cassettes as follows: 1 - skin, entirely submitted and perpendicular medial and lateral margins, 2 - perpendicular superior and inferior margins, 3-6 - smaller hemorrhagic area surrounded by indurated area with closest anterior margin, 7 & 8 - probable biopsy area with cavity with closest posterior margin, 9-14 - petroleum products sales representative sections from the other areas. Sections are submitted after additional fixation. / : 10/08/2021 B - Received fresh and postfixed in formalin is one container labeled with the patient's name and designated single stitch new superior margin. The specimen consists of a piece of fibroadipose tissue measuring 6 x 2 x 0.2 cm. The new margin is inked black. The old margin is inked blue. Sections reveal focal corona-yellow adipose cut surfaces with focal fibrous area. No mass lesion is identified. The entire specimen is submitted in five cassettes. Sections are submitted after additional fixation. / : 10/08/2021 C - Received fresh and postfixed in formalin is one container labeled with the patient's name and designated new inferior margin, double stitch new inferior margin. The specimen consists of a piece of fibroadipose tissue measuring 4 x 1.5 x 0.3 cm. The new margin is inked black. Old margin is inked blue. Sections reveal yellow adipose cut surfaces with scant fibrous area. No mass lesion is identified. The entire specimen is submitted in two cassettes. Sections are submitted after additional fixation. / : 10/08/2021 D - Received fresh and postfixed in formalin is one container labeled with the patient's name and designated new medial margin. The specimen consists of two pieces of corona-yellow fibroadipose tissue measuring 3.5 x 3 x 1 cm. A stitch is noted possibly identifying new margin. The specimen is inked as follows: new margin - black, old margin - blue. Another piece of adipose tissue measures 1.5 x 1 x 0.1 cm. Sections reveal yellow adipose cut surfaces mixed with corona-white fibrous area. No obvious mass lesion is identified. The entire specimen is submitted in six cassettes. Sections are submitted after additional fixation. / SJ:shannan 10/08/2021 TC:0 CPT: 24068, 19043 x3, 64739
--- NOTE | 2021-10-07 10:05 | BI_ITS ---
SURGICAL BREAST SPECIMEN RADIOGRAPH CLINICAL: Document presence of calcifications in biopsy specimen. FINDINGS: Specimen shows presence of calcifications. Electronically Signed: Stewart Estrella MD at 14:04 EDT , BI/Breast Biopsy Specimen IMPRESSION: undefined
[2021-10-07] MEDS: Lactated Ringers 1,000 ML 15 ML IV (10:12)
--- NOTE | 2021-10-07 10:49 | HP.PCM_ITS ---
History and Physical Date of Admission: 10/07/21 Intake Visit Reasons: stereo path Chief Complaint: abn mammo Allergies No Known Allergies Allergy (Verified 09/11/21 14:51) Medications cholecalciferol (vitamin D3) 2,000 unit PO DAILY 10/06/15 [History Confirmed 09/11/21] multivitamin with folic acid 1 tab PO DAILY 10/06/15 [History Confirmed 09/11/21] docosahexaenoic acid 300 mg PO DAILY 03/05/20 [History Confirmed 09/11/21] esomeprazole magnesium 40 mg PO DAILY 03/05/20 [History Confirmed 09/11/21] [id number] serr 1 ea PO DAILY 03/05/20 [History Confirmed 09/11/21] sennosides 2 tab PO DAILY 03/05/20 [History Confirmed 09/11/21] levothyroxine 75 mcg tablet 75 mcg PO DAILY tab 09/02/21 [History Confirmed 09/11/21] PFSH Medical History Breast calcifications GERD (gastroesophageal reflux disease) History of lymphoma Thyroid disease Surgical History History of colonoscopy (~02/2020) History of hysterectomy History of lymph node biopsy Family History Mother Cancer oral w/ mets to lung Osteoporosis Father Parkinsons disease Social History Smoking Status: Never smoker HPI HPI HPI: RAMÓN MCKINNON, is a 66 F who presents to the office today for surgical follow-up of a stereotactic needle core biopsy upper outer quadrant left breast that I performed for her on September 08, 2021 for a reasonably broad area of clus tered microcalcifications. I have reviewed the patient's mammograms and detect that this area of microcalcifications extends diagonally for at least 3 cm. At today's appointment with with the patient and her . This was a consultative appointment. 30-minute interview. Leftbreast, upper outer quadrant, stereotactic core biopsy: Ductal carcinoma in situ with the follow characteristics: Type -solid Microcalcifications ?present Nuclear grade ?2-3/3 Maximal length ?5.5 mm ANTIBODY /CLONE RESULT P53 (DO-7) positive, 2% Ki-67 (30-9) positive, 5% CK8 (89lmcwO21)positive CK5-6 (D5 & 1684) positive Calponin-1 (OF157F) positive P40 (BC28)positive E-Cad (ECH-6) positive MORPHOMETRIC ANALYSIS ER (clone 6F11) positive, >95%, strong intensity CO (clone 16/1E2) positive, 40%, moderate intensity Her-2Neu (clone CB11) equivocal, 1-2+ My previous notes reflect the following Visit Reasons: BIRAD 4 Chief Complaint: abn mammo Well Treatment Offsider Required: No Is patient in pain?: No Allergies No Known Allergies Allergy (Verified 09/02/21 13:22) Medications cholecalciferol (vitamin D3) 2,000 unit PO DAILY 10/06/15 [History Confirmed 09/02/21] multivitamin with folic acid 1 tab PO DAILY 10/06/15 [History Confirmed 09/02/21] docosahexaenoic acid 300 mg PO DAILY 03/05/20 [History Confirmed 09/02/21] esomeprazole magnesium 40 mg PO DAILY 03/05/20 [History Confirmed 09/02/21] [id number] serr 1 ea PO DAILY 03/05/20 [History Confirmed 09/02/21] sennosides 2 tab PO DAILY 03/05/20 [History Confirmed 09/02/21] levothyroxine 75 mcg tablet 75 mcg PO DAILY tab 09/02/21 [History Confirmed 09/02/21] Is last menstrual period known: No Post menopausal: Yes Patient : No PFSH Medical History (Updated 09/02/21 @ 13:20 by Sally Ly) Breast calcifications GERD (gastroesophageal reflux disease) History of lymphoma Thyroid disease Surgical History (Updated 09/02/21 @ 13:20 by Sally Ly) History of colonoscopy (~02/2020) History of hysterectomy History of lymph node biopsy Family History (Updated 09/02/21 @ 13:21 by Sally Ly) Mother Cancer oral w/ mets to lung Osteoporosis Father Parkinsons disease Social History (Updated 09/30/17 @ 16:[address] Jennifer Yip, ) Smoking Status: Never smoker HPI HPI HPI: RAMÓN MCKINNON, is a 66 F who presents to the office today for surgical consultation regarding abnormal mammography. The patient is referred by Dr. Josefa Martinez and Dr. Su Lawrence and a written copy of my surgical consult recommendations will return to her. On August 13, 2021 at the [facility] screening bilateral mammography was obtained. There was felt to be scattered benign calcifications seen throughout the right breast. There is felt to be a grouped punctate calcification in the upper outer quadrant of the left breast for which magnification views were recommended. However there was felt to be no change from the previous study. BI-RADS Category 0. Subsequently on August 25, 2021 diagnostic left mammograms were obtained. The breasts was noted to be very dense. There is felt to be a persistent cluster of microcalcification in the upper outer quadrant of the left breast. BI-RADS Category 4. Biopsy recommended. 66-year-old female. G4, . Menarche age 14. First child born when she was 30. She did breast-feed. No history of previous breast biopsy. She does take vaginal estrogen cream. She also takes a natural product that has a fish oil type supplement. Family history negative for breast cancer. She has not had Covid-19. She has been Covid-19 vaccinated. 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 She was treated by Dr. Bull Villalta with chemo radiation treatment and has been disease-free since. ROS General General: No weight change, appetite, fatigue, colon cancer, breast cancer or weakness HEENT HEENT: No difficulty swallowing, eye injury, eye surgery, swollen glands or h oarseness Endo Endocrine: Yes thyroid disease; No diabetes mellitus, thyroid cancer, Hair loss, heat intolerance or cold intolerance Breast Breast: Yes abnormal mammogram; No left breast lump, right breast lump, nipple discharge, breast pain, abnormal US or breast enlargement Cardio Cardiovascular: No murmur, pacemaker, heart disease, atrial fibrillation, high blood pressure, heart attack, heart stent, palpitations, shortness of breat with exertion or chest pain Psych Psychiatric: No depression, anxiety or hearing voices Resp Respiratory: No shortness of breath, No sleep apnea, No cough, No COPD, No asthma, No emphysema and No wheezing Gastro Gastrointestinal: No abdominal pain, No nausea or vomiting, No diarrhea, Yes constipation, No blood in stool, Yes acid reflux, No hemorrhoids, No ulcers, No gallbladder problem and No black,tarry stools Brenden Hematologic: No blood thinners, No blood disorders, No bleeding, No anemia and No blood clots Neuro Neurologic: No weakness Exam Const General: cooperative, healthy appearing, comfortable, no acute distress and well developed [facility] Head: normal to inspection Eyes General: appearance normal, both eyes and all related structures Neck Neck: normal visual inspection Neck mass: No Carotids: normal carotid upstroke and no bruits Chest Chest palpation & inspection: normal inspection of the chest Other: Right breast: No focal mass. No nipple discharge. No axillary or clavicular neuropathy Left breast: No focal mass. No nipple discharge. No axillary or clavicular adenopathy, benign-appearing uniform round pigmented skin lesion left per iareolar Resp Effort & Inspection: normal respiratory effort Auscultation: clear to auscultation bilaterally Cardio Rate: regular rate Rhythm: regular rhythm GI Inspection: normal to inspection Palpation: soft and no hepatosplenomegaly Musc Cervical Spine: normal cervical lordosis Skin General: no rashes or lesions noted Neuro General: patient alert and patient awake Extrem General: no calf tenderness Psych Appearance: grossly normal Judgment: judgment good Assessment and Plan Assessment and Plan (1) Breast calcifications: Status: Acute Plan - Dr. Eber Spain MD: 66-year-old female with clustered microcalcifications upper outer quadrant left breast. I recommend to her stereotactic needle core biopsy and have discussed the technique, benefit, risk, alternatives. I have asked her to hold her vaginal estrogen and natural fish oil replacement product. She has had an opportunity to ask and have questions answered. 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 We will schedule and expedite her care. I appreciate the opportunity of assisting with her surgical management. Copy: Dr. Josefa Spain M.D., F.A.C.S Assessment and Plan Assessment and Plan (1) DCIS (ductal carcinoma in situ): Status: Acute Qualifiers: Laterality: left Qualified Code(s): D05.12 - Intraductal carcinoma in situ of left breast Plan - Dr. Eber Spain MD: 66-year-old female. Newly diagnosed DCIS involved with microcalcifications upper outer quadrant left breast. This is at least a 3 cm area in length. Today we had an extensive discussion regarding treatment options. I discussed with the patient potential for doing a bracketed stereotactic wire localization with lumpectomy. There is no evidence of invasive malignancy at this time and I did not propose proceeding with a sentinel lymph node biopsy. We had an extensive discussion however regarding the amount of tissue that would require excision. We also discussed the possibility of not achieving clear margins and of the potential of finding invasive carcinoma in the removed specimen with final pathology several days postoperatively. We discussed the potential risk of having return to surgery either for margin reexcision or for sentinel lymph node biopsy. The patient had many significant and important questions regarding her treatment. The patient and her had vacation plans for 1 weeks from now. At the conclusion of her appointment I have strongly recommended the patient that she pursue her already planned consultation with Dr. Bull Villalta who she requests. I believe having a preoperative consultation with him would be very pertinent. The patient did discuss the potential of having a left mastectomy instead of breast conservation work. She is aware that this would therefore avoid the requirement for radiation treatment. She is aware that she is estrogen receptor sensitive and likely would be placed on hormonal manipulation post treatment. With the importance of her questions today I feel that delaying her surgery and getting medical oncology consultation preprocedure is very much in her interest and she and her concur. We will tentatively set a large time aside on October 09, 2011 upon my return from my absence. She has had an opportunity to ask and have questions answered. Copy: Dr. Bull Villalta and Dr. Josefa Martinez It is of note that the patient previously has been treated by Dr. Bull Villalta for lymphoma primary in the neck. She is very much interested in returning to see him for his input in this matter Eber Spain M.D., F.A.C.S. On today's visit the patient has concerns about 2 additional findings. She has some flat corona pigmented lesions surrounding her left areola. There is at least 5 or 6 of these areas. They have a very benign appearance. I do not recommend surgical treatment at this time. She has approximately 3 irritated skin tags in the left axilla and 1 on the right. There is evidence of recent trauma and bleeding. I do recommend cautery ablation of those at this setting. She has had an opportunity to ask and have questions answered. We will proceed as noted. Eber Spain M.D., F.A.C.S.
--- NOTE | 2021-10-07 11:29 | OP.PCM_ITS ---
Problems Associated Problem List Diagnoses (1) DCIS (ductal carcinoma in situ): (2) Skin tag: Report of Operation Date of Procedure: 10/07/21 Pre-Operative Diagnosis: Extensive area of ductal carcinoma in situ upper outer quadrant left breast. Skin tags irritated bilateral axilla Post-Operative Diagnosis: Same Surgery/Procedure Performed:: Stereotactic wire localization and a bracketed technique upper outer quadrant left breast. Wire localized excisional lumpectomy upper outer quadrant left breast. Cautery ablation bilateral axillary skin tags Description of Surgical Findings:: Timeout informed consent was obtained. 66-year-old female was taken to the mammography suite. She was placed prone on the table and the left breast was placed in a lateral medial view. Several images were obtained to incorporate all of the area of oblong scattered microcalcifications previously biopsied and consistent with ductal carcinoma in situ. 2 sites were selected bracketing the area. The breast was prepped with Betadine. 1% lidocaine was used as a local anesthetic and throughout the procedure 1 cc was used. 20-gauge Kopan's needle was placed more posteriorly toward the chest wall and then a second needle more anteriorly inferiorly. This was used to bracket the area of interest. Sterile dressings were applied. She tolerated the procedure well. She was subsequently taken the operating for definitive surgical treatment. The patient was taken the operative room timeout informed consent obtained she underwent general anesthesia left arm was prepped with soft roll and placed at right angles to the table. The left breast and bilateral axilla sterilely prepped and draped. A curvilinear incision was made in the outer upper outer left breast so as to incorporate the previous core biopsy site. An ellipse of skin was removed inspected and discarded. Dissection was then performed down through the subcutaneous tissue into the fibrous breast tissue. Based upon the bracketing of the wires I used electrocautery and excised the oblong piece of breast tissue. I then took separate specimens superiorly and attached a single suture to the new margin and inferiorly and attached a double suture to the margin and then later in the procedure I reexcised the medial margin and placed a double suture at that. The specimen itself had wires that exited anteriorly a long suture was placed laterally and a short suture superiorly Hemostasis was achieved with electrocautery and with interrupted 3-0 Vicryl suture ligatures complete hemostasis was intact. Hemoclips were placed at 4 corners to tee the excision site. Visual inspection failed to reveal any residual suspicious tissue by palpation there is no residual tissue a portion of the pectoralis major fascia was taken with the specimen as well. The wound was then closed with deep suture and subdermal stitches of interrupted 3-0 Vicryl. Skin edges approximated running subicular 4 Monocryl. The. Lumpectomy and skin area was anesthetized with 30 cc of 0.5% Marcaine. Steri- Strips Telfa OpSite dressing applied. Both axilla were inspected. There were approximately 3 irritated skin tags in each axilla. These were all small and simply treated with a cautery device and ablated. No specimens submitted for analysis. Topical antibiotic ointment was applied. Sponge and instrument and needle counts were reported to surgically correct. Specimens left breast mass. Redo left superior margin. Redo left inferior margin. Redo left medial margin all with suture marking. Drains none. Specimen mammograms were obtained. It appeared that the microcalcifications and biopsy site was nicely contained within the bracketed area. It is of specific note that the stereotactic biopsy dumbbell shaped clip was found at the time of surgery and was removed at the time of surgery and so ended up not being demonstrated on the mammographic films. The marking clip however definitely completely removed from the patient herself. Eber Spain M.D., F.A.C.S. Surgeon: Eber Spain Type of Anesthesia: General and Local Anesthesiologist: Chad Vo
--- NOTE | 2021-10-07 11:32 | EX.PCM.DISCH ---
Discharge Instructions Procedure Breast Surgery Diet Discharge Diet: No restrictions Activity Discharge Activity: May Not Drive (for 2-3 days or while taking narcotic pain meds.) May shower in (days): 1 Lifting Restrictions: 10 pounds for 1 week. Dressing / Incision Call your doctor if your incision/area has: Continuous Slow Oozing and Sudden Increased Bleeding Call your doctor if you observe: Fever of 101 or Higher Suture Line Care: Avoid Pulling/Pushing and Avoid Pinching/Bending Remove Dressing in: 1 day Additional Dressing/Incision Instructions:: Remove bulky dressing tomorrow. May leave any opsite dressing for 3-4 days. Keep dressing in place until your follow-up appointment. Follow Up Care Test Results: Test results from this visit will be discussed in further detail at your follow-up appointment, if applicable. Discharge Plan Admission Attending Provider: Eber Spain Primary Care Provider: Josefa Martinez Consulting Providers: Romaine Garza Discharge Orders/Prescriptions Prescriptions: No Action levothyroxine 75 mcg tablet 75 mcg PO DAILY RF: 0 cholecalciferol (vitamin D3) 1,000 UNIT tablet 2,000 unit PO DAILY RF: 0 multivitamin with folic acid 1 TABLET tablet 1 tab PO DAILY RF: 0 sennosides 1 TABLET tablet 2 tab PO DAILY RF: 0 esomeprazole magnesium 40 MG capsule 40 mg PO DAILY RF: 0 [id number] serr 1 EACH tablet 1 ea PO DAILY RF: 0 alendronate [Fosamax] 70 mg Tablet 70 mg PO MO RF: 0
[2021-10-07] MEDS: Bupivacaine Mpf 0.5% 30 ML VIAL (12:55)
[2021-10-07] MEDS: Bacitracin 500 UNITS/GM PACKET (13:30)
[2021-10-07] MEDS: traMADol 50 MG Tablet PO (15:16)
--- NOTE | 2021-10-07 16:01 | SUR.PHASEII ---
DR. HERNANDEZ SEEN PT, GAVE OKAY FOR D/C
== END 2021-10-07 16:15 | disposition home or self-care (01) ==
LOC: SDC 09:34 → AC 09:34
PROVIDERS: PCP Internal Medicine; Referring Provider Surgery; Visit Provider Surgery
PROC: (CPT 19301; principal; 2021-10-07 11:15)
DX: D05.12 Intraductal carcinoma in situ of left breast (principal); L91.8 Other hypertrophic disorders of the skin; E07.9 Disorder of thyroid, unspecified; K21.9 Gastro-esophageal reflux disease without esophagitis; Z20.822 Contact with and (suspected) exposure to COVID-19; Z79.890 Hormone replacement therapy; Z79.899 Other long term (current) drug therapy; Z85.72 Personal history of non-Hodgkin lymphomas
CPT/HCPCS: 19301; 19283; 11200; 19281; 36415; 76098; 80048; 85027; 87426; 88305; 88307; 93005; J7120; J2405

== ENCOUNTER 2022-03-31 08:43 | Day surgery (SDC) | payer BC, SELFPAY ==
[2022-03-31] VITALS (8 sets, daily range): BP systolic 112–125; BP diastolic 67–76; PULSE 67–75; RESP 12–18; TEMP 36.1–36.6; O2SAT 95–100; BMI 23.3
--- NOTE | 2022-03-31 09:16 | HP.PCM_ITS ---
History and Physical Date of Admission: 03/31/22 Supervisory Historian Required: No Is patient in pain?: No Allergies No Known Allergies Allergy (Verified 03/17/22 15:20) Is last menstrual period known: No Post menopausal: Yes Patient : No PFSH Medical History?(Updated 10/14/21 @ 15:54 by Lily Connell) Breast calcifications Cancer Cardiology follow-up encounter DCIS (ductal carcinoma in situ) GERD (gastroesophageal reflux disease) History of echocardiogram History of irregular heartbeat History of lymphoma Post-menopausal Thyroid disease Wears contact lenses Wears glasses Surgical History?(Updated 10/14/21 @ 15:57 by Lily Connell) History of breast lump removal History of colonoscopy (~02/2020) History of hysterectomy History of lymph node biopsy Family History? Mother Cancer ?? ? oral w/ mets to lung OsteoporosisFather Parkinsons disease Social History? Smoking Status:? Never smoker HPI HPI HPI: 67-year-old female returns for surgical follow-up.? She has a history of ductal carcinoma in situ left breast.? She has been treated by Dr. Bull Villalta and Dr. Alexander Vazquez She has concerns that within the past couple weeks or so she developed pain at the incision site.? She had gone swimming was wondering whether she could have bruised the area.? She has previously had some rash in that area as well but she has been using skin cream and does not have any rash currently.? She thinks that there could be them some slight discoloration.? She is wondering about a possible hematoma. She also would like to discuss problems with cough and silent reflux.? She has been on Nexium for at least 7 years.? She has never had an upper endoscopy.? If she stops the Nexium she gets recurrent cough.? She has been previously seen by ENT who has reinforced the diagnosis of reflux 66-year-old female.? She presents for her postoperative visit.? On October 07, 2021 because of an area of extensive ductal carcinoma in situ and symptoms irritated skin tag she underwent a bracketed stereotactic wire localization technique upper outer quadrant left breast with excisional lumpectomy of this area.? Some irritated skin tags were ablated at that time as well.? She is happy with her breast surgery.? Incisions healing well.? She is got some irritation at the skin tight ablation sites. MICROSCOPIC DIAGNOSIS A.? Left breast,lumpectomy with needle localization:Ductal carcinoma in situ.See cancer summary in the comment section. B.? Left breast, new superior margin:Focal fibrocystic changes.Dense fibrosis and focal intraductal hyperplasia without atypia.Negative for carcinoma. C.? New inferior margin:Benign breast tissue, negative for carcinoma. D.? New medial margin:Fibrocystic changes, intraductal hyperplasia without atypia.Focal chronic inflammation, fibrosis consistent with previous biopsy site.Negative forcarcinoma.SJ:rg? 10/10/2021 COMMENTDUCTAL CARCINOMA IN SITU SUMMARY: Procedure ?excision with needle localizationSpecimen laterality ?leftTumor site ?upper outer quadrant microcalcifications per clinical information. Size (extent of DCIS):Estimated size (extent) ?1.7 x 1 cm, largest focus.Number of blocks with DICS ?5Number of blocks examined ?27 (specimens A, B, C & D) Histologic type ?ductal carcinoma in situArchitectural pattern ?cribriform, micropapillary and solid. Nuclear grade ?grade 2 (intermediate)Necrosis ?present, central (expansive ?comedo? necrosis) Margins ?uninvolved by ductal carcinoma in situ.The tumor is 0.3 cm away from the closest anterior margin. Regional lymph nodes ?no lymph node submitted or found. Additional Pathologic Findings ?fibrocystic changes and intraductal hyperplasia with multifocal atypia.- Focal dense fibrosis.-Changes consistent with previous biopsy site.-Minute fibroadenoma x3 (largest measuring 0.5 cm in greatest dimension).Ancillary Studies (previously performed [id number] / [id number]) ER ?positive (>95%, strong intensity) HI ?positive (40%, moderate intensity) Her2 sabra ([facility]) ?equivocal (1-2+) Microcalcifications -present in DCIS and non-neoplastic tissue. Frequent microcalcifications are noted in the ductal carcinoma in situ. Clinical history -Please make reference to previous specimen ([id number]) left breast, upper outer quadrant, stereotactic core biopsy with diagnosis of ductal carcinoma in situ.Radiologic findings ?microcalcification upper outer quadrant left breast. Pathologic Staging:? pTis(DCIS)? pNx? pMx Exam Const General: cooperative, healthy appearing, comfortable and no acute distress HENTX Head: normal to inspection Neck Neck: normal visual inspection Chest Other: Left breast: Well-healed curvilinear incision upper outer left breast with some soft tissue loss.? There is superficial tenderness.? The incision itself has healed well no keloiding.? No erythema or induration.? No warmth.? Mild postradiation changes with slight thickening of the skin noted.? No focal mass Resp Auscultation: clear to auscultation bilaterally Cardio Rate: regular rate GI Inspection: normal to inspection Skin General: no rashes or lesions noted Neuro General: patient alert, patient awake and patient oriented x3 Extrem General: no calf tenderness Psych Appearance: grossly normal Assessment and Plan Assessment and Plan (1) DCIS (ductal carcinoma in situ): ?Status:?Acute ?Qualifiers: ?Laterality:?left? Qualified Code(s):?D05.12 - Intraductal carcinoma in situ of left breast ?Plan: Regarding the patient's left breast pain I am not seeing a distinct surgical etiology at this time.? Apparently it is lingering to the patient.? I did offer her a trial of gabapentin therapy.? She does not feel that the discomfort is severe enough to initiate that at this time. Regarding the patient's silent reflux over quite a period of time and requiring a PPI.? We did discuss conservative measures regarding eating with certain amount of time before going to bed having the head of the bed raised ideal body weight etc.? The patient already complies with these ideals.? We discussed recommendations to undergo an esophagogastroduodenoscopy with very careful inspection and biopsy if indicated.? I would anticipate careful inspection particular at the EG junction with biopsies there and possibly midesophagus as well. She is additionally aware that if we were to consider reflux surgical procedure then she would also in the future need esophageal manometry.? We are not at the point of scheduling that yet. She has had an opportunity ask and have questions answered I appreciate the opportunity of assisting with her surgical care and we will schedule and proceed with an EGD as noted. Copy:Dr. Bull Villalta and Dr. Alexander Vazquez and Dr. Josefa Spain M.D., F.A.C.S. I have examined the patient and the H&P has been reviewed. There are no clinical changes since date of exam. Eber Spain M.D., F.A.C.S.
[2022-03-31] MEDS: Lactated Ringers 1,000 ML 15 ML IV (09:22)
--- NOTE | 2022-03-31 09:45 | IMM_PTH ---
PATIENT: RAMÓN MCKINNON LOC: EN U#:[id number] AGE/SX: 67/F ROOM: RE03/31/[address]: Dr. Eber Spain MD : 1955 BED: DIS: 03/31/2022 SPEC #: [id number] RECD: 03/31/22 13:09 STATUS: SAMUEL REDanika #: [id number] ROZINA: 03/31/22 09:[address]: Eber Spain DEPT: IMMUNOHISTOCHEMISTRY RECD BY: Laura Erickson ENTERED: 03/31/22 13:09 SP TYPE: IMMUNO OTHR DR: Dr. Josefa Martinez MD Tissues: B - Stomach, NOS Procedures: H Pylori (initial) PHYSICIAN & INSTITUTION [address] [address] SPECIMEN INFORMATION: Tissue Source: B ? Antrum biopsy Clinical Info: Silent reflux Specimen Number: [id number] CPT code: 95600 METHODOLOGY: Deparaffinized sections of prefer/formalin-fixed tissue or PAP/DQ stained slides are incubated with monoclonal/polyclonal antibodies/oligonucleotide probes. Localization is made via biotin free immunoperoxidase method. Appropriate controls are performed and reacted as expected. Results on target cell population are indicated in the following table: RESULTS: ANTIBODY / CLONE RESULT Block B H Pylori (polyclonal) negative These tests were developed and their performance characteristics determined by [facility]. They may not have been cleared or approved by the U.S. Food and Drug Administration. The FDA has determined that such clearance or approval is not necessary. The above immunohistochemical/dualISH markers are ordered and reviewed by the Pathologist. INTERPRETATION: B. Antrum, biopsy: Negative for Helicobacter pylori organisms. AM:shannan 04/01/2022
--- NOTE | 2022-03-31 09:45 | EGD_PTH ---
PATIENT: RAMÓN MCKINNON LOC: EN U#:[id number] AGE/SX: 67/F ROOM: RE03/31/[address]: Dr. Eber Spain MD : 1955 BED: DIS: 03/31/2022 SPEC #: [id number] RECD: 03/31/22 11:30 STATUS: SAMUEL MCMILLANDanika #: [id number] ROZINA: 03/31/22 09:[address]: Eber Spain DEPT: SURGICAL PATHOLOGY RECD BY: Alessandra Flores ENTERED: 03/31/22 12:42 SP TYPE: EGD BIOPSY OT DR: Dr. Josefa Martinez MD Tissues: A - Duodenum, NOS B - Gastric mucous membrane C - Stomach, NOS D - Esophagus, NOS E - Esophagus, NOS Procedures: Special Stain Group II Surgery Specimen Level IV Alcian Blue/PAS (control) HEADER OPERATION: EGD (MAC), biopsy PRE-OP DIAGNOSIS: Silent reflux TISSUE SUBMITTED: A -Duodenum biopsy, B ? Antrum biopsy for histo and H. pylori, C ? Greater curvature polyp biopsy, D ? Distal esophagus biopsy, E ? Mid esophagus biopsy MICROSCOPIC DIAGNOSIS A. Duodenum, biopsy: No pathologic change. B. Gastric antrum, biopsy: Mild chronic gastritis. See comment. C. Stomach, greater curvature polyp, biopsy: Consistent with fundic gland polyp. D. Distal esophagus, biopsy: Gastroesophageal junctional mucosa with chronic inflammation. No evidence of goblet cell metaplasia. See comment. E. Mid esophagus, biopsy: No pathologic change. AM:shannan 04/01/2022 COMMENT B. The results of immunohistochemistry for Helicobacter pylori will be reported separately ([id number]). D. Alcian blue/PAS stain with matched control supports the above diagnosis. MICROSCOPIC DESCRIPTION Slides are reviewed. GROSS DESCRIPTION A - Received in fixative is one container labeled with the patient's name and designated duodenum biopsy. The specimen consists of one irregular fragment of light corona soft tissue that measures 0.5 x 0.5 x 0.1 cm. The specimen is totally submitted in one cassette. B - Received in fixative is one container labeled with the patient's name and designated antrum biopsy. The specimen consists of one irregular fragment of light corona soft tissue that measures 0.3 x 0.3 x 0.1 cm. The specimen is totally submitted in one cassette. C - Received in fixative is one container labeled with the patient's name and designated greater curvature polyp biopsy. The specimen consists of one irregular fragment of light corona soft tissue that measures 0.6 x 0.5 x 0.1 cm. The specimen is totally submitted in one cassette. D - Received in fixative is one container labeled with the patient's name and designated distal esophagus biopsy. The specimen consists of multiple irregular fragments of light corona soft tissue that in aggregate measure 1 x 0.3 x 0.1 cm. The specimen is totally submitted in one cassette. E - Received in fixative is one container labeled with the patient's name and designated mid esophagus biopsy. The specimen consists of one irregular fragment of light corona soft tissue that measures 0.5 x 0.2 x 0.1 cm. The specimen is totally submitted in one cassette. / AM:shannan 03/31/2022 TC:3 CPT: 93716 x5, 19532
--- NOTE | 2022-03-31 10:24 | OP.EGD_ITS ---
Patient Name: Мария Helton Procedure Date: 03/31/2022 10:02 AM Date of : 1955 Age: 67 Procedure: Upper GI endoscopy Indications: Chronic cough Providers: Eber Spain MD Medicines: See the Anesthesia note for documentation of the administered medications Complications: No immediate complications. Procedure: Pre-Anesthesia Assessment: - Prior to the procedure, a History and Physical was performed, and patient medications and allergies were reviewed. The patient's tolerance of previous anesthesia was also reviewed. The risks and benefits of the procedure and the sedation options and risks were discussed with the patient. All questions were answered, and informed consent was obtained. Prior Anticoagulants: The patient has taken no previous anticoagulant or antiplatelet agents. ASA Grade Assessment: II - A patient with mild systemic disease. After reviewing the risks and benefits, the patient was deemed in satisfactory condition to undergo the procedure. After obtaining informed consent, the endoscope was passed under direct vision. Throughout the procedure, the patient's blood pressure, pulse, and oxygen saturations were monitored continuously. The Endoscope was introduced through the mouth, and advanced to the second part of duodenum. The upper GI endoscopy was accomplished without difficulty. The patient tolerated the procedure well. Scope In: 10:10:44 AM Scope Out: 10:17:15 AM Total Procedure Duration Time 0 hours 6 minutes 31 seconds Findings: very mild esophagitis was found 37 cm from the incisors. Biopsies were taken with a cold forceps for histology. A small hiatal hernia was present. Diffuse mildly erythematous mucosa without bleeding was found in the gastric antrum. Biopsies were taken with a cold forceps for histology. Multiple pedunculated and sessile polyps with no stigmata of recent bleeding were found in the stomach. The polyp was removed with a cold biopsy forceps. Resection and retrieval were complete. The examined duodenum was normal. Biopsies were taken with a cold forceps for histology. The middle third of the esophagus was normal. Biopsies were taken with a cold forceps for histology. Impression: - Reflux esophagitis. Biopsied. - Small hiatal hernia. - Erythematous mucosa in the antrum. Biopsied. - Multiple gastric polyps. Resected and retrieved. - Normal examined duodenum. Biopsied. - Normal middle third of esophagus. Biopsied. Recommendation: - Discharge patient to home. - Resume previous diet. - Continue present medications. - Telephone my office for pathology results in 1 week. Patient's symptoms as chronic cough. Might consider further evaluation with esophageal manometry. Procedure Code(s): --- Professional --- 50473, Esophagogastroduodenoscopy, flexible, transoral; with biopsy, single or multiple Diagnosis Code(s): --- Professional --- K21.0, Gastro-esophageal reflux disease with esophagitis K44.9, Diaphragmatic hernia without obstruction or gangrene K31.89, Other diseases of stomach and duodenum K31.7, Polyp of stomach and duodenum R05, Cough CPT copyright 2017 [employer]. All rights reserved. The codes documented in this report are preliminary and upon drainage engineer review may be revised to meet current compliance requirements. Eber Spain MD 03/31/2022 10:23:58 AM This report has been signed electronically. Number of Addenda: 0 Note Initiated On: 03/31/2022 10:02 AM
--- NOTE | 2022-03-31 10:25 | OP.CCLET_ITS ---
03/31/2022 Josefa Martinez [address] [place] [address] Re : Upper GI endoscopy procedure for Мария Helton Dear Dr. Martinez This procedure was performed on Thursday, March 31, 2022. My impressions and recommendations are as follows: Impressions : - Reflux esophagitis. Biopsied. - Small hiatal hernia. - Erythematous mucosa in the antrum. Biopsied. - Multiple gastric polyps. Resected and retrieved. - Normal examined duodenum. Biopsied. - Normal middle third of esophagus. Biopsied. Recommendations : - Discharge patient to home. - Resume previous diet. - Continue present medications. - Telephone my office for pathology results in 1 week. Patient's symptoms as chronic cough. Might consider further evaluation with esophageal manometry. My findings are described in the full procedure note, which is enclosed. If I can be of further assistance, please feel free to contact me at Doctor phone number(s): Work: . Sincerely, Eber Spain MD 03/31/2022 10:23:58 AM This report has been signed electronically.
== END 2022-03-31 11:29 | disposition home or self-care (01) ==
LOC: EN 08:44 → AC 08:44
PROVIDERS: PCP Internal Medicine; Referring Provider Internal Medicine; Visit Provider Surgery
PROC: 0DJ08ZZ Inspection of Upper Intestinal Tract, Via Natural or Artificial Opening Endoscopic (ICD-10-PCS; CPT 43235; principal; 2022-03-31 09:40)
DX: K31.7 Polyp of stomach and duodenum (principal); K29.50 Unspecified chronic gastritis without bleeding; K21.00 Gastro-esophageal reflux disease with esophagitis, without bleeding; K44.9 Diaphragmatic hernia without obstruction or gangrene; Z85.3 Personal history of malignant neoplasm of breast
CPT/HCPCS: 43239; 88305; 88313; 88342; J7120; J2405

== ENCOUNTER → 2022-08-04 | Outpatient (CLI) | payer BC, SELFPAY ==
--- NOTE | 2022-08-04 13:00 | BI_ITS ---
MAMMOGRAPHY - BILATERAL SCREENING REASON FOR EXAM: Female, 67 years old. Routine annual screening examination. PERTINENT HISTORY: Personal history of breast cancer. Prior left lumpectomy and left stereotactic breast biopsy. TECHNIQUE: Digital bilateral breast ezequiel (3D mammographic acquisition) in the CC and MLO projections. 2-D mediolateral oblique (MLO) and craniocaudad (CC) views of both breasts were obtained. CAD: Full Field Digital Mammography with Computer Added Detection was performed. COMPARISON: Comparison is made with prior study dated August 13, 2021 and October 07, 2021. FINDINGS: Breast Composition: The breasts are heterogeneously dense, which may obscure small masses. The patient is status post lumpectomy in the deep upper outer aspect of the left breast with resultant postoperative scarring. There is evidence of a 1.5 cm x 2.6 cm well-defined nodule in the deep upper central portion of the right breast. Correlation with ultrasound is recommended for further evaluation. No other significant abnormalities are identified. BI/SCRN MAMM (CAD)W/EZEQUIEL BILAT IMPRESSION: Status post lumpectomy in the deep upper outer aspect of the left breast with resultant postoperative change. 1.5 cm x 2.6 cm well-defined nodule in the deep upper central portion of the right breast. Correlation with ultrasound is recommended. ASSESSMENT CATEGORY: BIRADS Category 0: Incomplete. Need additional imaging evaluation. A letter regarding these results will be sent to the patient by the facility within 30 days. Approximately 10% of breast cancers are not detected by mammography. A normal mammogram should not delay biopsy of a clinically suspicious abnormality. [id number] Electronically Signed: Stewart Estrella MD at 17:26 EST ,
== END | disposition home or self-care (01) ==
LOC: OPBI 12:59
PROVIDERS: PCP Internal Medicine; Referring Provider Nurse Practitioner; Visit Provider Nurse Practitioner
DX: Z12.31 Encounter for screening mammogram for malignant neoplasm of breast (principal); Z85.3 Personal history of malignant neoplasm of breast
CPT/HCPCS: 77063; 77067

== ENCOUNTER → 2022-08-07 | Outpatient (CLI) | payer BC, SELFPAY ==
--- NOTE | 2022-08-07 08:04 | US_ITS ---
STUDY: ULTRASOUND BREAST - RIGHT REASON FOR EXAM: Female, 67 years old. Abnormal screening mammogram. TECHNIQUE: Axial and longitudinal images of the RIGHT breast were performed with a high resolution ultrasound transducer. # OF IMAGES: 12 COMPARISON: Comparison is made with prior mammogram dated August 04, 2022. Comparison is also made with prior sonogram of the right breast dated August 13, 2020. FINDINGS: RIGHT Breast: The mammographic abnormality corresponds to a 2.2 cm x 1.9 cm x 1.1 cm cyst. This is at the 12:00 position in the breast at 2 cm from nipple. This is increased slightly in size as compared to prior study. US/Breast Limited Unilateral IMPRESSION: The mammographic abnormality corresponds to a 2.2 cm x 1.9 cm x 1.1 cm cyst. This has increased slightly in size as compared to prior study. ASSESSMENT CATEGORY: BIRADS Category 2: Benign. A letter regarding these results will be sent to the patient by the facility within 30 days. Electronically Signed: Stewart Estrella MD at 13:25 EST ,
== END | disposition home or self-care (01) ==
PROVIDERS: PCP Internal Medicine; Visit Provider Nurse Practitioner
DX: D05.12 Intraductal carcinoma in situ of left breast (principal); R92.8 Other abnormal and inconclusive findings on diagnostic imaging of breast
CPT/HCPCS: 76642

== ENCOUNTER → 2023-01-04 | Outpatient (CLI) | payer BC, SELFPAY ==
--- NOTE | 2023-01-04 14:38 | US_ITS ---
STUDY: ULTRASOUND BREAST - LEFT REASON FOR EXAM: Female, 67 years old. Palpable lump at the left lumpectomy site. TECHNIQUE: Axial and longitudinal images of the LEFT breast were performed with a high resolution ultrasound transducer. # OF IMAGES: 43 COMPARISON: Comparison is made with prior mammogram done earlier in the day. FINDINGS: LEFT Breast: The upper outer quadrant of the left breast was examined with ultrasound. Postsurgical lumpectomy changes are seen. No mass lesions present. US/Breast Limited Unilateral IMPRESSION: Status post lumpectomy. No mass lesion is seen. ASSESSMENT CATEGORY: BIRADS Category 2: Benign. A letter regarding these results will be sent to the patient by the facility within 30 days. Electronically Signed: Stewart Estrella MD at 14:21 EDT ,
--- NOTE | 2023-01-04 14:38 | BI_ITS ---
MAMMOGRAPHY - UNILATERAL DIAGNOSTIC: LEFT BREAST REASON FOR EXAM: Female, 67 years old. Palpable lump at the lumpectomy site. PERTINENT HISTORY: Personal history of breast cancer. Prior left lumpectomy with radiation and chemotherapy. TECHNIQUE: Digital unilateral breast rupal (3D mammographic acquisition) in the CC and MLO projections. 2-D mediolateral oblique (MLO) and craniocaudad (CC) views of both breasts were obtained. CAD: Full Field Digital Mammography with Computer Added Detection was performed. COMPARISON: Comparison is made with prior study August 04, 2022 and October 07, 2021. FINDINGS: Breast Composition: The breasts are heterogeneously dense, which may obscure small masses. The patient is status post lumpectomy in the upper the slightly lateral aspect of the left breast with postoperative scarring. This is unchanged. No other significant abnormalities are identified. BI/DIAG MAMM W/CAD, UNILAT IMPRESSION: Stable unilateral diagnostic mammogram. With the patient''s history of a palpable lump at the lumpectomy site in the left breast, correlation with ultrasound is recommended. ASSESSMENT CATEGORY: BIRADS Category 0: Incomplete. Need additional imaging evaluation. A letter regarding these results will be sent to the patient by the facility within 30 days. Approximately 10% of breast cancers are not detected by mammography. A normal mammogram should not delay biopsy of a clinically suspicious abnormality. Electronically Signed: Stewart Estrella MD at 9:06 EDT ,
== END | disposition home or self-care (01) ==
PROVIDERS: PCP Internal Medicine; Referring Provider Internal Medicine Hematology & Oncology; Visit Provider Internal Medicine Hematology & Oncology
DX: N63.21 Unspecified lump in the left breast, upper outer quadrant (principal)
CPT/HCPCS: 76642; 77061; 77065; G0279

== ENCOUNTER → 2023-08-05 | Outpatient (CLI) | payer MEDICARE, BC, SELFPAY ==
--- NOTE | 2023-08-05 09:54 | BI_ITS ---
MAMMOGRAPHY - BILATERAL SCREENING 3-D TOMOSYNTHESIS REASON FOR EXAM: Female, 68 years old. SCREENING PERTINENT HISTORY: No significant family history. TECHNIQUE: 2-D mammograms and 3-D Tomosynthesis of the breast (s) were performed. CAD was performed. COMPARISON: None. FINDINGS: The breast composition is heterogeneously dense that can obscure small breast masses. Scattered benign calcifications are seen. No dense spiculated masses or suspicious microcalcifications are identified. No architectural distortion is identified. There is no skin thickening or retraction. There has been no significant change since the prior study. Lumpectomy changes and scarring in the retroareolar left breast at posterior depth. BI/SCRN MAMM (CAD)W/EZEQUIEL BILAT IMPRESSION: No mammographic signs of malignancy. Routine yearly mammograms recommended. ASSESSMENT CATEGORY: BIRADS Category 2: Benign. A letter regarding these results will be sent to the patient by the facility within 30 days. FOLLOW UP RECOMMENDATION: Yearly follow up mammogram recommended. (A) Approximately 10% of breast cancers are not detected by mammography. A normal mammogram should not delay biopsy of a clinically suspicious abnormality. Electronically Signed: Loki Hardy MD at 15:10 EST ,
== END | disposition home or self-care (01) ==
PROVIDERS: PCP Internal Medicine; Referring Provider Internal Medicine Hematology & Oncology; Visit Provider Internal Medicine Hematology & Oncology
DX: Z12.31 Encounter for screening mammogram for malignant neoplasm of breast (principal)
CPT/HCPCS: 77063; 77067

== ENCOUNTER 2024-03-27 16:30 | Outpatient (RCR) | payer MEDICARE, BC, SELFPAY ==
--- NOTE | 2024-01-11 16:12 | HP.PTEVAL_ITS ---
Patient's Visit Information Visit Information Visit Information: RAMÓN MCKINNON is a 68 year old F referred to Physical Therapy by Dr. Su Lawrence MD with a diagnosis of MIXED INCONTINENCE. Date of Evaluation: 01/11/24 Physical Therapist: Aletha Camacho PT, Cert MDT Visit Plan Frequency: 1x/Week Duration: 2-4 Months Plan: PF THERAPY FOR STRENGTHENING, LENGTHENING/RELAXATION AND ENDURANCE T RAINING. URINARY URGE AND FREQUENCY EDUCATION. HEALTHY BLADDER HABIT EDUCATION. TRAINING IN COORDINATION OF PELVIC FLOOR MUSCULATURE WITH HIP AND CORE (TRANSVERSE ABDOMINUS) MUSCULATURE. CORE STRENGTHENING. MELCHOR LE ROM, STRETCHING AND STRENGTHENING. TRAINING IN ABDOMINAL CAVITY PRESSURE MGMT WITH ADL'S. 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 Present since: ABOUT A YEAR AND A HALF AGO Is it getting better, worse or staying the same: GETTING WORSE Commenced as a result of: NO APPARENT REASON Worse: DRINKING TOO MUCH IN THE EVENING MAKES NIGHT FREQUENCY WORSE, DELAYING URINATION CAUSES MORE URGENCY AND LEAKAGE, INCREASING FLUID INTAKE Better: URINATING EVERY 2-3 HOURS, CUTTING BACK ON FLUIDS Disturbed sleep: GETTING UP 2 TIMES AT NIGHT TO URINATE Previous history/Previous treatment: BLADDER PROLAPSE SURGERY W/SLING PLACEMENT MAR 2019 Treatment this episode: NOT ON ANY MEDICATION FOR BLADDER AND DOES NOT WANT TO BE ON ANY. HOPEFUL THAT PELVIC FLOOR EX'S WILL HELP. Gait: NORMAL. VERY ACTIVE. How long can you delay the need to urinate: USUALLY 30 MINUTES. NOT MAKING TO THE BATHROOM IN TIME 3-4 TIMES A WEEK. Prolapse (Falling out feeling): NO Frequency of Urination: EVERY 2-3 HRS. Ability to stop urine flow: UNSURE Ability to initiate urine stream: YES Dyspareunia: NO Bowel Incontinence: NO Accidents: NO Unexplained weight loss: NO Imaging: NONE RECENT. PMH/Recent major surgery: H/O BREAST CANCER 2 YEARS AGO TREATED WITH SURGERY AND RADIATION. HYPOTHYROIDISM. H/O LYMPHOMA DX'D IN 2009 TREATED WITH CHEMO AND RADIATION. OSTEOPOROSIS. Objective Objective: Sitting/Standing Posture: R ILIAC CREST HIGHER THAN L. REDUCED LORDOSIS. PATIENT DENIES BACK PAIN. Active Correction of posture: NE. ABLE TO CORRECT. DOES NOT MAINTAIN. Other Observations: INDEP GAIT AND TRANSFERS. Sensory deficit: MELCHOR LE LIGHT TOUCH SENSATION GROSSLY INTACT AND SYMMETRICAL ROM deficit: MELCHOR LE HS, CALF, AND HIP ROTATOR TIGHTNESS Motor deficit: MELCHOR LE'S GROSSLY 5/5 WITH MMT'ING. PELVIC FLOOR STRENGTH 3/5 X 3 SEC X 2 REPS WITH MANUAL INTERNAL VAGINAL TESTING. Dural Signs: NEGATIVE MELCHOR LE'S. Lumbar mvmt loss: flex - NIL ext - MOD R SG - MOD L SG - MOD PATIENT DENIES PAIN WITH LUMBAR ROM TESTING. Core strength: FAIR Palpation: INTERNAL MANUAL VAGINAL TESTING REVEALS NO TENDERNESS OR TRIGGER POINTS. FUNCTIONAL SCREEN: Incontinence Impact Questionnaire Score: 4 Urogenital Distress Inventory Score: 5 Goals Goal 1:: DECREASE URINARY LEAKAGE EPISODES TO ONE OR LESS PER DAY Goal Time Frame: 6-8 Weeks Goal 2:: PATIENT WILL SUCCESSFULLY DELAY VOIDING LONG NEEDED WHEN URGENCY OCCURS TO SUCCESSFULLY MAKE IT TO THE BATHROOM. Goal Time Frame: 4-6 Weeks Goal 3:: PATIENT WILL DEMONSTRATE/COMMUNICATE 10 CONSISTENT AND CONSECUTIVE 10 SECOND PELVIC FLOOR MUSCLE CONTRACTIONS TO DEMONSTRATE IMPROVED PELVIC FLOOR ENDURANCE. Goal Time Frame: 8-12 Weeks Goal 4:: DEVELOP HEALTHY FLUID INTAKE HABITS WITH FLUID INTAKE OF ? BODY WEIGHT IN OUNCES PER DAY AND 2/3 BEING WATER. Goal Time Frame: 2-4 Weeks Goal 5:: NORMALIZE VOIDING FREQUENCEY TO EVERY 3-4 HOURS. Goal Time Frame: 6-8 Weeks Goal 6:: PATIENT WILL BE INDEP WITH A HEP/HOME INSTRUCTIONS FOR CONTINUED IMPROVEMENT ONCE FORMAL PHYSICAL THERAPY CONCLUDES. Goal Time Frame: 8-12 Weeks Rehabilitation Potential Physical Therapy Diagnosis: PELVIC FLOOR WEAKNESS, CORE WEAKNESS, LE STIFFNESS WITH SYMPTOMS OF MIXED INCONTINENCE. Anticipated Interventions Patient/Client Instruction: Educate patient on: Condition, Plan of Care and Risk Factors For the Purpose of:: To improve self management Therapeutic Exercise to Include: Strength training, Endurance training, Postural training, Flexibilty training, Neuromotor development and Relaxation training For the Purpose of:: To improve muscle performance and motor function, To improve ability of physical actions for home/community/work/leisure, To increase flexibility/ROM and To improve endurance Text: Thank you for the opportunity to evaluate your patient. For Medicare and Medicare HMO plans, please review the plan of care and approve it. It will need to be FAXED BACK to us at [phone] for Medicare purposes. For Medicare only, by signing this I certify the plan of care. Please let me know if there are questions or concerns regarding this plan of care. Physician Signature: Date:
--- NOTE | 2024-03-27 19:43 | HP.PTDCSUM ---
Discharge Summary D/C summary: It has been my pleasure to treat RAMÓN MCKINNON referred by Dr. Su Lawrence MD, with the diagnosis of MIXED INCONTINENCE for a total of 6 visit(s). Discharge Date: 03/27/24 Please see the following information for a summary of their discharge status. Subjective Subjective: PATIENT REPORTS SHE IS DOING ABOUT THE SAME. OVER-ALL SHE REPORTS SHE MIGHT HAVE MINIMAL PROGRESS BUT SHE CAN'T PUT A % ON IT. PATIENT REPORTS THAT SHE WASN'T COMPLIANT WITH THE [employer] EX'S CONSISTENTLY LAST WEEK BUT THE WEEK BEFORE THAT SHE DID THEM ONCE A DAY. FAR THE EX'S GO SHE STATES SHE TRIES TO DO 4 OF THEM 3-4 TIMES A WEEK. SHE REPORTS GETTING THE RECOMMENDED FLUID INTAKE AND VOIDING EVERY 2-3 HOURS. SHE ALSO STATES SHE USES THE URGE INCONTINENCE STATEGIES TAUGHT OCCASIONALLY. Objective Objective/Function: PATIENT WAS SEEN TODAY FOR RE-ASSESSMENT OF PROGRESS TOWARD THE SET PT GOALS AND THE NEED FOR FURTHER PHYSICAL THERAPY VS READINESS FOR DISCHARGE. PATIENT IS NOT REPORTING OR DEMONSTRATING SIGNIFICANT IMPROVEMENT, HAS INCONSISTENT ATTENDANCE, AND REPORTS PARTIAL AND SOMETIMES OCCASIONAL COMPLIANCE WITH HOME INSTRUCTIONS. UPON ASSESSMENT/EXAM TODAY: PATIENT IS ABLE TO VERBALIZE ALL 5 URGE INCONTINENCE STRATEGIES TAUGHT. SHE STATES SHE USES THEM OCCASIONALLY. Strength: PELVIC FLOOR STRENGTH 3/5 X 5 SEC X 4 REPS WITH MANUAL INTERNAL VAGINAL TESTING. (Compared to 3/5 X 3 SEC X 2 REPS at Initial Evaluation 01/11/24). FUNCTIONAL SCREEN: Incontinence Impact Questionnaire Score: 2 (4 at Eval) Urogenital Distress Inventory Score: 5-6 ( 5 at Eval). NO OTHER SIGNIFICANT OBJECTIVE CHANGES SINCE INITIAL EVAL SEEN. THIS PATIENT HAS HAD MULTIPLE CANCELLED/RE-SCHEDULED APPOINTMENTS AND HAS ONLY ATTENDED 6 APPOINTMENTS SINCE HER INITIAL EVALUATION ON 01/11/24. SHE REPORTS PARTIAL COMPLIANCE WITH HOME INSTRUCTIONS GIVEN. IT IS MY HOPE THAT IF SHE IS ABLE TO FOLLOW THE INSTRUCTIONS THAT HAVE BEEN GIVEN SHE WILL HAVE IMPROVEMENT. PATIENT STATES THAT SHE HOPES TOO THAT SHE WILL IMPOVE IF SHE CONTINUES TO WORK AT THE EX'S ABLE. THIS PT RECOMMENDED THAT SHE FOLLOW UP WITH HER PHYSICIAN IF SHE DOES NOT IMPROVE. Goals Goal 1:: DECREASE URINARY LEAKAGE EPISODES TO ONE OR LESS PER DAY Goal Progress: UNABLE TO ASSESS Goal 2:: PATIENT WILL SUCCESSFULLY DELAY VOIDING LONG NEEDED WHEN URGENCY OCCURS TO SUCCESSFULLY MAKE IT TO THE BATHROOM. Goal Progress: NOT MET Goal 3:: PATIENT WILL DEMONSTRATE/COMMUNICATE 10 CONSISTENT AND CONSECUTIVE 10 SECOND PELVIC FLOOR MUSCLE CONTRACTIONS TO DEMONSTRATE IMPROVED PELVIC FLOOR ENDURANCE. Goal Progress: NOT MET Goal 4:: DEVELOP HEALTHY FLUID INTAKE HABITS WITH FLUID INTAKE OF ? BODY WEIGHT IN OUNCES PER DAY AND 2/3 BEING WATER. Goal Progress: Goal Met Goal 5:: NORMALIZE VOIDING FREQUENCEY TO EVERY 3-4 HOURS. Goal Progress: NOT MET Goal 6:: PATIENT WILL BE INDEP WITH A HEP/HOME INSTRUCTIONS FOR CONTINUED IMPROVEMENT ONCE FORMAL PHYSICAL THERAPY CONCLUDES. Goal Progress: PATIENT NOT SIG IMPROVING Plan Plan: D/C DUE TO LACK OF PROGRESS AND COMPLIANCE. D/C Information d/c sentence: If there are questions or concerns regarding this patient's physical therapy, please feel free to call me at [phone]. Thank you for the referral of this patient. Sincerely, Aletha Camacho, PT, Cert MDT
== END 2024-03-27 19:00 | disposition home or self-care (01) ==
LOC: PT 16:30
PROVIDERS: PCP Internal Medicine; Referring Provider Obstetrics & Gynecology; Visit Provider Obstetrics & Gynecology
DX: Z01.419 Encounter for gynecological examination (general) (routine) without abnormal findings (principal); N39.46 Mixed incontinence; Z85.3 Personal history of malignant neoplasm of breast
CPT/HCPCS: 97162; 97530

== ENCOUNTER → 2024-08-08 | Outpatient (CLI) | payer MEDICARE, BC, SELFPAY ==
--- NOTE | 2024-08-08 08:27 | BI_ITS ---
PROCEDURE: SCRN MAMM (CAD)W/EZEQUIEL BILAT REASON FOR EXAM: F, Age 69 y/o , SCREENING. Personal history of left breast cancer status post lumpectomy with radiation and tamoxifen in September 2021. TECHNIQUE: Bilateral screening digital breast tomosynthesis with 2D and 3D images. Computer aided detection. COMPARISON: 08/05/2023 FINDINGS: The breasts are heterogeneously dense which may obscure small masses. The mammogram demonstrates that the patient has dense breasts. Supplemental screening with whole breast ultrasound or MRI may be considered for further evaluation. Postsurgical changes are seen in the central left breast at posterior depth. No suspicious masses, areas of developing architectural distortion, or suspicious calcifications. BI/SCRN MAMM (CAD)W/EZEQUIEL BILAT IMPRESSION: There is no mammographic evidence of malignancy. BI-RADS 2: BENIGN. RECOMMEND ANNUAL MAMMOGRAPHIC SCREENING. Follow-up code: Routine Follow-up The patient will be notified of the results by letter. Reading Location: [id number]
== END | disposition home or self-care (01) ==
LOC: OPBI 08:26
PROVIDERS: PCP Internal Medicine; Referring Provider Internal Medicine Hematology & Oncology; Visit Provider Internal Medicine Hematology & Oncology
DX: Z12.31 Encounter for screening mammogram for malignant neoplasm of breast (principal)
CPT/HCPCS: 77063; 77067

== ENCOUNTER 2024-11-07 15:30 | Outpatient (RCR) | payer MEDICARE, BC, SELFPAY ==
--- NOTE | 2024-09-19 12:27 | HP.PTEVAL ---
Patient's Visit Information Visit Information Visit Information: RAMÓN MCKINNON is a 69 year old F referred to Physical Therapy by Self Referred with a diagnosis of PF itis R. Date of Evaluation: 09/19/24 Physical Therapist: Rafi Us, ADRIANT, OCS, CSCS Visit Plan Frequency: 1-2x /Week Duration: 2-4 Weeks Plan: 1-2x/week for 2-4 weeks for. 1. RPW each session to PF pain 2. progress from current gastroc wall stretch to soleus and ankle tb Consider graston/DN if needed. 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 has had this before in R foot 6 yrs ago. Done class sicne without a porblem but it started this year. Stopped class. No other exercises but is active and walks alot. Up to 3/10, worse without shoes, better with sleeve. Overall has been about 60% better. Got steroid injection a month ago. which helped significantly with Dr. Bright. Pain is in arch on R and not on L. Sleep is fine. Worse first thin in am. Activities are normal just painful. Retired. Spends day, Volunteers alot and babysits grandchildren on feet alot, does not like to sit. Basic ADLs are all I and OK Pain R heel: Pain Intensity (Out of 10): 0 Pain Intensity Range: 0 and 3 Comment: better with supportive shoes and sleeve. Objective Objective: R PF into heel mildly tender today. Df missing on R to 0 degrees vs 5 degrees on L, inv/ev/PF all symmetrical. Tightness in gastroc and soleus R side noticeable. Big toes move symmetrically and well as do metatarsals B. strength big toes 4/5, ankle 4/5 B in all directions without pain today.Has slight high arch B but minimal and is getting orthotics from Dr. Bright for this. walking normal today with 1/10 pain R PF area. knee adn hip strength symmetrical and funcitonal. Balance/Special Test Scores Lower Extremity Functional Score: 49 Goals Goal 1:: 5 degree DF B feet and ankles Goal Time Frame: 2-4 Weeks Goal 2:: Pain 0-1/10 at all times and 75% better Goal Time Frame: 2-4 Weeks Goal 3:: I appropriate management of condition Goal Time Frame: 2-4 Weeks Rehabilitation Potential Physical Therapy Diagnosis: tightness and inflammation chroni R PF limiting comfortable funciton. Rehabilitation Potential: Fair Anticipated Interventions Patient/Client Instruction: Educate patient on: Condition and Plan of Care For the Purpose of:: To decrease pain, To improve nutrient delivery to tissue, To improve muscle performance and motor function and To increase tolerance to activity/condition/position Therapeutic Exercise to Include: Strength training Comment: consider dry needle and graston with RPW For the Purpose of:: To decrease pain, To improve nutrient delivery to tissue, To improve muscle performance and motor function and To increase tolerance to activity/condition/position Manual Therapy Techniques to Include: Mobilization and Soft tissue mobilization For the Purpose of:: To decrease pain, To decrease swelling/inflammation, To increase ROM and To improve nutrient delivery to tissue Cryotherapy (ice pack, ice massage): Yes For the Purpose of:: To decrease pain, To decrease swelling/inflammation and To improve nutrient delivery to tissue Text: Thank you for the opportunity to evaluate your patient. For Medicare and Medicare HMO plans, please review the plan of care and approve it. It will need to be FAXED BACK to us at [phone] for Medicare purposes. For Medicare only, by signing this I certify the plan of care. Please let me know if there are questions or concerns regarding this plan of care. Physician Signature: Date:
--- NOTE | 2024-11-07 16:01 | HP.PTDCSUM ---
Discharge Summary D/C summary: It has been my pleasure to treat RAMÓN MCKINNON referred by ADRIAN MazariegosM, with the diagnosis of PF itis R for a total of 6 visit(s). Discharge Date: 11/07/24 Please see the following information for a summary of their discharge status. Subjective Subjective: Doing well and ready to be done after today. Pain R heel: Pain Intensity (Out of 10): 0 Overall Improvement % Improvement: 80 Objective Objective/Function: 80% better, doing well, wanted one more treatment #6 Goals Goal 1:: 5 degree DF B feet and ankles Goal Progress: Goal Met Goal 2:: Pain 0-1/10 at all times and 75% better Goal Progress: Goal Met Goal 3:: I appropriate management of condition Goal Progress: Goal Met Plan Plan: d/c D/C Information Discharge Comments: 6 treatments of shockwave and 80% better. No f/u scheduled with doctor. Will call if needed.New orthotics are in and helpful d/c sentence: If there are questions or concerns regarding this patient's physical therapy, please feel free to call me at [phone]. Thank you for the referral of this patient. Sincerely, Rafi Us, DPT, OCS, CSCS Balance/Gait/Functional tests Balance/Special Test Scores Lower Extremity Functional Score: 49 Improvement % Improvement: 80
== END 2024-11-07 19:00 | disposition home or self-care (01) ==
LOC: PT 15:30
PROVIDERS: PCP Internal Medicine; Referring Provider Podiatrist; Visit Provider Podiatrist
DX: M72.2 Plantar fascial fibromatosis (principal)
CPT/HCPCS: 97110; 97161